=== PATIENT | female | born 1985 | race Caucasian/White ===

== ENCOUNTER → 2020-01-23 10:47 | Outpatient (CLI) | payer BC, SELFPAY ==
[2014-11-08 08:10] VITALS: BMI 20.9
[2020-01-23 11:27] LABS: Absolute Lymphocyte Count 2.07 X10^3/uL (0.83-4.51); Absolute Neutrophil Count 3.5 X10^3/uL (2.0-7.7); Basophil# 0.02 X10^3/uL; Basophil% 0.3 % (0-1); Eosinophil# 0.17 X10^3/uL; Eosinophils% 2.7 % (0-5); Hematocrit 39.8 % (37-47); Hemoglobin 12.8 g/dL (12.0-15.0); Lymphocyte # 2.07 X10^3/ul (4.0); Lymphocyte % 33.4 % (19-41); Mean Corp Hgb Conc 32.2 g/dL (32-36); Mean Corpuscular Hgb 30.3 pg (27.0-32.0); Mean Corpuscular Volume 94.1 fL (81-99); Mean Platelet Vol. 12.5 fl (6.2-12.0); Monocyte# 0.46 X10^3/uL; Monocyte% 7.4 % (0-10); NRBC Flagged by Analyzer 0 % (0-5); Neutrophil # 3.45 X10^3/uL (2.7-7.7); Neutrophil % 55.9 % (47-70); Platelet Count 194 K/mm3 (150-450); RBC Distribution Width CV 11.7 % (11.6-14.6); RBC Distribution Width SD 39.6 fl (35.1-43.9); Red Blood Count 4.23 M/mm3 (4.2-5.4); White Blood Count 6.2 K/mm3 (4.4-11.0)
[2020-01-23 11:58] LABS: Anion Gap 4 (5-15); BUN 8 mg/dL (7-18); BUN/Creat Ratio 11.1 RATIO (10-20); Calcium,Total 9.1 mg/dL (8.5-10.1); Chloride 110 mmol/L (98-107); Cholesterol 132 mg/dL (200); Creatinine, Serum 0.72 mg/dL (0.55-1.02); EST Glomerular Filtration Rate 100 mL/min (>60); Est Glom Filt Rate - Afr Amer 120 mL/min (>60); Ferritin 66 ng/mL (8-252); Glucose 92 mg/dL (74-106); High Density Lipoprotein 37 mg/dL; Iron 78 ug/dL (50-170); Iron Binding Capacity,Total 325 ug/dL (250-450); Potassium 3.9 mmol/L (3.5-5.1); Sodium Level 141 mmol/L (136-145); Thyroid Stim Hormone (TSH) 1.29 uIU/mL (0.358-3.74); Triglycerides 119 mg/dL; Very Low Density Lipoprotein 24 mg/dL (5-40)
[2020-01-25 09:48] LABS: Vitamin D,25 Hydroxy 34.1 ng/mL
[2020-01-25 09:57] LABS: Vitamin B12 > 2000 pg/mL (211-911)
[2020-01-26 07:45] LABS: SARS-COV-2 TOTAL ABS Nonreactive (Nonreactive)
== END ==
PROVIDERS: PCP Pediatrics; Referring Provider Pediatrics; Visit Provider Pediatrics
DX: Z00.00 Encounter for general adult medical examination without abnormal findings (principal); B34.9 Viral infection, unspecified; E55.9 Vitamin D deficiency, unspecified; J45.909 Unspecified asthma, uncomplicated; E53.8 Deficiency of other specified B group vitamins; R79.9 Abnormal finding of blood chemistry, unspecified
CPT/HCPCS: 80048; 80061; 82306; 82607; 82728; 83540; 83550; 84443; 85025; 86769; G2023

== ENCOUNTER → 2020-12-17 09:51 | Outpatient (CLI) | payer BC, SELFPAY ==
[2020-12-17 10:29] LABS: Absolute Neutrophil Count 2.8 X10^3/uL (2.0-7.7); Basophil# 0.06 X10^3/uL; Eosinophil# 0.15 X10^3/uL; Eosinophils% 2.4 % (0-5); Hemoglobin 12.4 g/dL (12.0-15.0); Lymphocyte % 43.7 % (19-41); Mean Corp Hgb Conc 31.8 g/dL (32-36); Mean Corpuscular Hgb 29.8 pg (27.0-32.0); Mean Corpuscular Volume 93.8 fL (81-99); Mean Platelet Vol. 12.2 fl (6.2-12.0); Monocyte# 0.47 X10^3/uL; Monocyte% 7.6 % (0-10); NRBC Flagged by Analyzer 0 % (0-5); Neutrophil # 2.79 X10^3/uL (2.7-7.7); Neutrophil % 45.1 % (47-70); Platelet Count 194 K/mm3 (150-450); RBC Distribution Width CV 11.9 % (11.6-14.6); RBC Distribution Width SD 40.9 fl (35.1-43.9); Red Blood Count 4.16 M/mm3 (4.2-5.4); White Blood Count 6.2 K/mm3 (4.4-11.0)
[2020-12-17 12:13] LABS: Cholesterol 136 mg/dL (200); Folates, (Folic Acid) > 100.00 ng/mL (3.1-55.4); High Density Lipoprotein 55 mg/dL; Triglycerides 59 mg/dL; Very Low Density Lipoprotein 12 mg/dL (5-40)
[2020-12-22 12:12] LABS: T3 Total - Triiodothyronine 1.02 ng/mL (0.6-1.81); Vitamin B12 598 pg/mL (211-911); Vitamin D,25 Hydroxy 23.5 ng/mL
== END ==
PROVIDERS: PCP Pediatrics; Referring Provider Pediatrics; Visit Provider Pediatrics
DX: E55.9 Vitamin D deficiency, unspecified (principal); R79.9 Abnormal finding of blood chemistry, unspecified; E53.8 Deficiency of other specified B group vitamins; R00.2 Palpitations
CPT/HCPCS: 36415; 80061; 82306; 82607; 82746; 84439; 84443; 84480; 85025

== ENCOUNTER → 2021-02-17 09:33 | Outpatient (CLI) | payer BC, SELFPAY ==
[2014-11-08 08:10] VITALS: BMI 20.9
[2021-02-17 11:49] LABS: Anion Gap 6 (5-15); BUN 8 mg/dL (7-18); BUN/Creat Ratio 9.3 RATIO (10-20); Calcium,Total 9.5 mg/dL (8.5-10.1); Chloride 105 mmol/L (98-107); Creatinine, Serum 0.86 mg/dL (0.55-1.02); EST Glomerular Filtration Rate 81 mL/min (>60); Est Glom Filt Rate - Afr Amer 97 mL/min (>60); Glucose 71 mg/dL (74-106); Potassium 3.6 mmol/L (3.5-5.1); Sodium Level 140 mmol/L (136-145)
[2021-02-17 14:12] LABS: Vitamin D,25 Hydroxy 38.5 ng/mL
== END ==
PROVIDERS: PCP Pediatrics; Visit Provider Pediatrics
DX: E55.9 Vitamin D deficiency, unspecified (principal)
CPT/HCPCS: 36415; 80048; 82306

== ENCOUNTER → 2021-03-03 09:54 | Outpatient (CLI) | payer BC, SELFPAY ==
[2014-11-08 08:10] VITALS: BMI 20.9
[2021-03-06 05:06] LABS: Chlamydia By Nucleic Acid AMP Negative (Negative)
[2021-03-06 07:36] LABS: Gonococcus By Nucleic Acid AMP Negative (Negative)
== END ==
PROVIDERS: PCP Pediatrics; Visit Provider Obstetrics & Gynecology
DX: Z11.3 Encounter for screening for infections with a predominantly sexual mode of transmission (principal)
CPT/HCPCS: 87491; 87591

== ENCOUNTER → 2022-02-24 | Outpatient (CLI) | payer OTHER, SELFPAY ==
[2022-02-24 10:22] LABS: Absolute Lymphocyte Count 2.52 X10^3/uL (0.83-4.51); Absolute Neutrophil Count 3.1 X10^3/uL (2.0-7.7); Basophil# 0.05 X10^3/uL; Basophil% 0.8 % (0-1); Eosinophil# 0.15 X10^3/uL; Eosinophils% 2.4 % (0-5); Hematocrit 39.4 % (37-47); Hemoglobin 12.8 g/dL (12.0-15.0); Lymphocyte # 2.52 X10^3/ul (0.83-4.51); Lymphocyte % 39.7 % (19-41); Mean Corp Hgb Conc 32.5 g/dL (32-36); Mean Corpuscular Hgb 30.7 pg (27.0-32.0); Mean Corpuscular Volume 94.5 fL (81-99); Mean Platelet Vol. 12.6 fl (6.2-12.0); Monocyte# 0.48 X10^3/uL; Monocyte% 7.6 % (0-10); NRBC Flagged by Analyzer 0 % (0-5); Neutrophil # 3.13 X10^3/uL (2.7-7.7); Neutrophil % 49.2 % (47-70); Platelet Count 205 K/mm3 (150-450); RBC Distribution Width CV 11.7 % (11.6-14.6); RBC Distribution Width SD 40.4 fl (35.1-43.9); Red Blood Count 4.17 M/mm3 (4.2-5.4); White Blood Count 6.4 K/mm3 (4.4-11.0)
[2022-02-24 11:31] LABS: Anion Gap 3 (5-15); BUN 8 mg/dL (7-18); BUN/Creat Ratio 8.8 RATIO (10-20); Calcium,Total 9.1 mg/dL (8.5-10.1); Chloride 111 mmol/L (98-107); Cholesterol 120 mg/dL (200); Creatinine, Serum 0.91 mg/dL (0.55-1.02); EST Glomerular Filtration Rate 75 mL/min (>60); Est Glom Filt Rate - Afr Amer 91 mL/min (>60); Folates, (Folic Acid) > 100.00 ng/mL (3.1-55.4); Glucose 91 mg/dL (74-106); High Density Lipoprotein 49 mg/dL; Potassium 3.6 mmol/L (3.5-5.1); Sodium Level 143 mmol/L (136-145); T4 Free Direct 0.87 ng/dL (0.76-1.46); Thyroid Stim Hormone (TSH) 0.97 uIU/mL (0.358-3.74); Triglycerides 57 mg/dL; Very Low Density Lipoprotein 11 mg/dL (5-40)
[2022-02-26 08:49] LABS: T3 Total - Triiodothyronine 0.98 ng/mL (0.6-1.81); Vitamin D,25 Hydroxy 45.6 ng/mL
== END | disposition home or self-care (01) ==
LOC: LAB 09:30
PROVIDERS: PCP Pediatrics; Visit Provider Pediatrics
DX: Z00.00 Encounter for general adult medical examination without abnormal findings (principal); E55.9 Vitamin D deficiency, unspecified; R79.9 Abnormal finding of blood chemistry, unspecified; E53.8 Deficiency of other specified B group vitamins; R53.82 Chronic fatigue, unspecified
CPT/HCPCS: 36415; 80048; 80061; 82306; 82746; 84439; 84443; 84480; 85025

== ENCOUNTER → 2022-09-01 | Outpatient (CLI) | payer OTHER, SELFPAY ==
[2022-09-01 10:58] LABS: Absolute Lymphocyte Count 2.95 X10^3/uL (0.83-4.51); Absolute Neutrophil Count 3.8 X10^3/uL (2.0-7.7); Basophil# 0.06 X10^3/uL; Basophil% 0.8 % (0-1); Eosinophil# 0.15 X10^3/uL; Hematocrit 41.1 % (37-47); Hemoglobin 13.4 g/dL (12.0-15.0); Lymphocyte # 2.95 X10^3/ul (0.83-4.51); Lymphocyte % 39.1 % (19-41); Mean Corp Hgb Conc 32.6 g/dL (32-36); Mean Corpuscular Hgb 30.9 pg (27.0-32.0); Mean Corpuscular Volume 94.9 fL (81-99); Mean Platelet Vol. 12.4 fl (6.2-12.0); Monocyte# 0.58 X10^3/uL; Monocyte% 7.7 % (0-10); NRBC Flagged by Analyzer 0 % (0-5); Neutrophil # 3.79 X10^3/uL (2.7-7.7); Neutrophil % 50.3 % (47-70); Platelet Count 220 K/mm3 (150-450); RBC Distribution Width CV 11.5 % (11.6-14.6); RBC Distribution Width SD 39.6 fl (35.1-43.9); Red Blood Count 4.33 M/mm3 (4.2-5.4); White Blood Count 7.5 K/mm3 (4.4-11.0)
[2022-09-01 12:02] LABS: ALB/GLOB Ratio 1.1 RATIO (0.9-2.4); AST(SGOT) 12 U/L (15-37); Alanine Aminotransfer ALT/SGPT 20 U/L (13-56); Albumin, Serum 3.9 g/dL (3.2-5.0); Alkaline Phosphatase 52 U/L (45-117); Anion Gap 8 (5-15); BUN 9 mg/dL (7-18); BUN/Creat Ratio 10.8 RATIO (10-20); Calcium,Total 8.9 mg/dL (8.5-10.1); Chloride 109 mmol/L (98-107); Cholesterol 130 mg/dL (200); Creatinine, Serum 0.84 mg/dL (0.55-1.02); EST Glomerular Filtration Rate 83 mL/min (>60); Est Glom Filt Rate - Afr Amer 100 mL/min (>60); Ferritin 62 ng/mL (8-252); Globulin 3.4 g/dL (2.2-4.2); Glucose 89 mg/dL (74-106); High Density Lipoprotein 49 mg/dL; Iron 106 ug/dL (50-170); Iron Binding Capacity,Total 366 ug/dL (250-450); Potassium 3.6 mmol/L (3.5-5.1); Protein, Total 7.3 g/dL (6.4-8.2); Sodium Level 144 mmol/L (136-145); T4 Free Direct 1.06 ng/dL (0.76-1.46); Thyroid Stim Hormone (TSH) 1.16 uIU/mL (0.358-3.74); Triglycerides 98 mg/dL; Very Low Density Lipoprotein 20 mg/dL (5-40)
[2022-09-03 08:42] LABS: T3 Total - Triiodothyronine 0.82 ng/mL (0.6-1.81); Vitamin B12 815 pg/mL (211-911); Vitamin D,25 Hydroxy 25.9 ng/mL
== END | disposition home or self-care (01) ==
LOC: LAB 10:27
PROVIDERS: PCP Pediatrics; Referring Provider Pediatrics; Visit Provider Pediatrics
DX: E55.9 Vitamin D deficiency, unspecified (principal); R79.9 Abnormal finding of blood chemistry, unspecified; E53.8 Deficiency of other specified B group vitamins; R00.2 Palpitations; R53.82 Chronic fatigue, unspecified; G90.A Postural orthostatic tachycardia syndrome [POTS]
CPT/HCPCS: 36415; 80053; 80061; 82306; 82607; 82728; 82746; 83540; 83550; 84439; 84443; 84480; 85025

== ENCOUNTER → 2022-12-12 | Outpatient (CLI) | payer OTHER, SELFPAY ==
[2022-12-12 11:23] LABS: Absolute Lymphocyte Count 2.73 X10^3/uL (0.83-4.51); Basophil# 0.06 X10^3/uL; Basophil% 0.8 % (0-1); Eosinophil# 0.17 X10^3/uL; Eosinophils% 2.3 % (0-5); Hematocrit 43.2 % (37-47); Hemoglobin 13.8 g/dL (12.0-15.0); Lymphocyte # 2.73 X10^3/ul (0.83-4.51); Lymphocyte % 36.4 % (19-41); Mean Corp Hgb Conc 31.9 g/dL (32-36); Mean Corpuscular Hgb 30.6 pg (27.0-32.0); Mean Corpuscular Volume 95.8 fL (81-99); Mean Platelet Vol. 12.3 fl (6.2-12.0); Monocyte# 0.55 X10^3/uL; Monocyte% 7.3 % (0-10); NRBC Flagged by Analyzer 0 % (0-5); Neutrophil # 3.97 X10^3/uL (2.7-7.7); Neutrophil % 52.9 % (47-70); Platelet Count 231 K/mm3 (150-450); RBC Distribution Width CV 11.8 % (11.6-14.6); Red Blood Count 4.51 M/mm3 (4.2-5.4); White Blood Count 7.5 K/mm3 (4.4-11.0)
[2022-12-12 11:59] LABS: Vitamin B12 489 pg/mL (211-911); Vitamin D,25 Hydroxy 33.1 ng/mL
[2022-12-12 14:31] LABS: ALB/GLOB Ratio 1.1 RATIO (0.9-2.4); AST(SGOT) 19 U/L (15-37); Alanine Aminotransfer ALT/SGPT 25 U/L (13-56); Albumin, Serum 4.1 g/dL (3.2-5.0); Alkaline Phosphatase 70 U/L (45-117); Anion Gap 5 (5-15); BUN 8 mg/dL (7-18); BUN/Creat Ratio 10.2 RATIO (10-20); Calcium,Total 9.6 mg/dL (8.5-10.1); Chloride 108 mmol/L (98-107); Creatinine, Serum 0.78 mg/dL (0.55-1.02); EST Glomerular Filtration Rate 89 mL/min (>60); Est Glom Filt Rate - Afr Amer 107 mL/min (>60); Ferritin 63 ng/mL (8-252); Folates, (Folic Acid) > 100.00 ng/mL (3.1-55.4); Free T3 1.9 pg/mL (2.18-3.98); Globulin 3.8 g/dL (2.2-4.2); Glucose 94 mg/dL (74-106); Iron 90 ug/dL (50-170); Iron Binding Capacity,Total 386 ug/dL (250-450); PERCENT IRON SATURATION 23.3 % (15.0-55.0); Potassium 4.1 mmol/L (3.5-5.1); Protein, Total 7.9 g/dL (6.4-8.2); Sodium Level 138 mmol/L (136-145); T4 Free Direct 0.87 ng/dL (0.76-1.46)
== END | disposition home or self-care (01) ==
PROVIDERS: PCP Pediatrics; Referring Provider Pediatrics; Visit Provider Pediatrics
DX: N64.3 Galactorrhea not associated with childbirth (principal); R53.83 Other fatigue; E53.8 Deficiency of other specified B group vitamins
CPT/HCPCS: 36415; 80053; 82306; 82607; 82728; 82746; 83540; 83550; 84146; 84439; 84443; 84481; 85025

== ENCOUNTER 2023-03-19 17:20 | Emergency (ER) | payer OTHER, SELFPAY ==
[2023-03-19 17:22] VITALS: BP 119/83; PULSE 77; RESP 14; TEMP 36.7; O2SAT 100; BMI 25.8
--- NOTE | 2023-03-19 17:35 | NURSING ---
NO OLD EKGS
--- NOTE | 2023-03-19 17:44 | ED.VIS.CHEST ---
HPI History of Present Illness Chief Complaint: Chest Pain Narrative Narrative: Patient presents with 2-day history of constant sharp stabbing nonpleuritic chest pain. She has had this in the past and attributed to POTS but she called her PCP who told her to go to the ED. she has no dyspnea. No back pain or tearing sensation. She has no lower extreme edema or calf pain. [facility] Medical History (Updated 03/19/23 @ 19:[address] Cirilo Salazar MD) Acute sinusitis, unspecified Contact with and (suspected) exposure to other viral communicable diseases Home Medications albuterol sulfate 90 mcg/actuation aerosol inhaler (Ventolin HFA) 2 puff inhalation Q4H PRN PRN Sob &/Or Wheezing 11/08/14 [History Last Taken Unknown] cyanocobalamin (vitamin B-12) 1,000 mcg/mL injection solution 100 mcg subcut Q14D 11/08/14 [History Last Taken Unknown] levomefolate calcium 15 mg tablet (L-Methylfolate) 15 mg PO DAILY 11/08/14 [History Last Taken Unknown] multivitamin with folic acid 400 mcg tablet (Thera) 1 tab PO DAILY 11/08/14 [History Last Taken Unknown] quetiapine 100 mg tablet 100 mg PO DAILY 11/08/14 [History Last Taken Unknown] amoxicillin 875 mg-potassium clavulanate 125 mg tablet 1 tab PO BID #28 tabs 12/13/21 [Rx Last Taken Unknown] Allergy/AdvReac Type Severity Reaction Status Date / Time Sulfa (Sulfonamide AdvReac Other Verified 03/19/23 17:21 Antibiotics) Social History Smoking Status: Never smoker ROS ROS ED ROS Narrative Past medical history: Reviewed Medications: Reviewed Social history: Noncontributory Review of systems: All systems negative except as indicated General: No fever Eyes: No visual changes ENT: No upper airway congestion, normal voice Neck: No neck pain Cardiovascular: Chest pain as in HPI Respiratory: No shortness of breath or cough Gastrointestinal: No abdominal pain, nausea vomiting or diarrhea Genitourinary: No dysuria Musculoskeletal: Denies myalgias no difficulty with ambulation Skin: No rash Neurological: No memory loss, confusion or any focal weakness EXAM Physical Exam Narrative Exam Narrative: Physical exam General: Well nourished, Well developed, No Acute Distress Head: Normocephalic, Atraumatic Eyes: Conjunctiva not pale ENT: Moist mucous membranes Neck: Supple, Nontender, No lymphadenopathy Cardiovascular: Regular rate, Regular rhythm Respiratory: No distress, CTA bilaterally Abdomen: Soft, Nontender, Nondistended Back: Nontender, Normal Inspection. Negative for: CVA tenderness Extremities: Nontender, No edema Skin: Normal color, No rash Neurological: Alert, Normal Strength, Normal Sensation Psychological: Normal affect Const Vital Signs: 03/19/23 17:22 03/19/23 17:27 03/19/23 18:30 Temperature 98.1 F Temperature Source Temporal Pulse Rate 77 61 Respiratory Rate 14 14 Respiratory Effort Normal Non-Labored Blood Pressure 119/83 H 111/84 H Blood Pressure Mean 95 93 Pulse Ox 100 100 Oxygen Delivery Method Room Air Room Air MDM MDM MDM Narrative Medical decision making narrative: EKG: Sinus rhythm with a rate of 69. Normal ME and QTc intervals. No ischemic changes. Interpreted by emergency doctor. Independent interpretation of test. Telemetry: Sinus rhythm with a rate in the 60s and 70s without ectopy Chest x-ray interpreted by me as normal : Patient has an unremarkable work-up in the ED. She has chest pain that is migrating I gave her Toradol and she improved. This pain has been ongoing for quite some time she thought it may have been somewhat different today. Regardless I believe she can be safely discharged I do not not worried about a PE she does not have any risk factors. I am not worried about cardiac disease she has normal EKG and troponin. I have ruled out pneumothorax pneumonia or any other lung disease on x-ray. She does not meet criteria for admission Lab Data Labs: Laboratory Results - last 24 hr 03/19/23 17:45 WBC 8.2 RBC 4.25 Hgb 13.4 Hct 39.6 MCV 93.2 MCH 31.5 MCHC 33.8 RDW Std Deviation 39.9 RDW Coeff of Yaquelin 11.8 Plt Count 216 MPV 11.9 Immature Gran % (Auto) 0.100 Neut % (Auto) 56.7 Lymph % (Auto) 33.5 Stephens % (Auto) 7.4 Eos % (Auto) 1.8 Baso % (Auto) 0.5 Absolute Neuts (auto) 4.6 Absolute Lymphs (auto) 2.74 Nucleated RBC % 0 Sodium 140 Potassium 4.0 Chloride 108 H Carbon Dioxide 29.0 Anion Gap 3 L BUN 8 Creatinine 0.76 Estim Creat Clear Calc 96.72 Est GFR (MDRD) Af Amer 111 Est GFR (MDRD) Non-Af 91 BUN/Creatinine Ratio 10.5 Glucose 95 Calcium 9.0 Total Bilirubin 0.20 AST 17 ALT 39 Alkaline Phosphatase 73 Troponin I High Sens < 3 L Total Protein 7.3 Albumin 3.7 Globulin 3.6 Albumin/Globulin Ratio 1.0 Discharge Plan Triage Chief Complaint: Chest Pain ED Provider: Cirilo Salazar Dx/Rx/DC Orders Clinical Impression: POTS (postural orthostatic tachycardia syndrome), Chest pain Instructions: ED Chest Pain, Uncertain Cause Prescriptions: No Action amoxicillin-pot clavulanate 875-125 mg tablet 1 tab PO BID Qty: 28 0RF quetiapine 100 MG tablet 100 mg PO DAILY cyanocobalamin (vitamin B-12) 1,000 MCG/ML solution 100 mcg subcut Q14D albuterol sulfate [Ventolin HFA] 1 INHALER inhaler 2 puff inhalation Q4H PRN PRN (Reason: Sob &/Or Wheezing) levomefolate calcium [L-Methylfolate] 15 MG tablet 15 mg PO DAILY multivitamin with folic acid [Thera] 1 TABLET tablet 1 tab PO DAILY Primary Care Provider: Tamara Jalloh Referrals: Tamara Jalloh MD [Primary Care Provider] - 3-5 Days Disposition Disposition: Home, Self Care
[2023-03-19] MEDS: Ketorolac 15 MG/ML Vial IV (17:45)
[2023-03-19 17:52] LABS: Absolute Lymphocyte Count 2.74 X10^3/uL (0.83-4.51); Absolute Neutrophil Count 4.6 X10^3/uL (2.0-7.7); Basophil# 0.04 X10^3/uL; Basophil% 0.5 % (0-1); Eosinophil# 0.15 X10^3/uL; Eosinophils% 1.8 % (0-5); Hematocrit 39.6 % (37-47); Hemoglobin 13.4 g/dL (12.0-15.0); Lymphocyte # 2.74 X10^3/ul (0.83-4.51); Lymphocyte % 33.5 % (19-41); Mean Corp Hgb Conc 33.8 g/dL (32-36); Mean Corpuscular Hgb 31.5 pg (27.0-32.0); Mean Corpuscular Volume 93.2 fL (81-99); Mean Platelet Vol. 11.9 fl (6.2-12.0); Monocyte# 0.61 X10^3/uL; Monocyte% 7.4 % (0-10); NRBC Flagged by Analyzer 0 % (0-5); Neutrophil # 4.64 X10^3/uL (2.7-7.7); Neutrophil % 56.7 % (47-70); Platelet Count 216 K/mm3 (150-450); RBC Distribution Width CV 11.8 % (11.6-14.6); RBC Distribution Width SD 39.9 fl (35.1-43.9); Red Blood Count 4.25 M/mm3 (4.2-5.4); White Blood Count 8.2 K/mm3 (4.4-11.0)
--- NOTE | 2023-03-19 18:00 | RAD_ITS ---
STUDY: X-RAY CHEST REASON FOR EXAM: Female, 37 years old. Chest pain TECHNIQUE: Single AP portable view of the chest. COMPARISON: None. FINDINGS: The lungs are clear and expanded. There is no demonstrated pleural abnormality. Normal size heart. Normal mediastinum and bladimir. Normal visualized pulmonary arteries. Normal visualized aortic arch and descending thoracic aorta. Normal visualized thoracic spine. Normal visualized ribs, clavicles, and shoulders. There is no demonstrated abnormality of the visualized soft tissue structures of the upper abdomen. RAD/Chest 1 View (Portable) IMPRESSION: Normal x-ray examination of the chest. Electronically Signed: Wayne Judge MD at 19:59 EDT ,
[2023-03-19 18:30] VITALS: BP 111/84; PULSE 61; RESP 14; O2SAT 100
[2023-03-19 18:42] LABS: AST(SGOT) 17 U/L (15-37); Alanine Aminotransfer ALT/SGPT 39 U/L (13-56); Albumin, Serum 3.7 g/dL (3.2-5.0); Alkaline Phosphatase 73 U/L (45-117); Anion Gap 3 (5-15); BUN 8 mg/dL (7-18); BUN/Creat Ratio 10.5 RATIO (10-20); Chloride 108 mmol/L (98-107); Creatinine, Serum 0.76 mg/dL (0.55-1.02); EST Glomerular Filtration Rate 91 mL/min (>60); Est Glom Filt Rate - Afr Amer 111 mL/min (>60); Estimated Creatinine Clearance 96.72 ml/min; Globulin 3.6 g/dL (2.2-4.2); Glucose 95 mg/dL (74-106); Protein, Total 7.3 g/dL (6.4-8.2); Sodium Level 140 mmol/L (136-145); Troponin-I HS < 3 pg/mL (3.0-54.0)
== END 2023-03-19 19:38 | disposition home or self-care (01) ==
PROVIDERS: Emergency Provider Emergency Medicine; PCP Pediatrics; Visit Provider Emergency Medicine
DX: I49.8 Other specified cardiac arrhythmias (principal); R07.9 Chest pain, unspecified
CPT/HCPCS: 71045; 80053; 84484; 85025; 93005; 96374; 99283; J7030; A4216

== ENCOUNTER 2023-06-17 08:00 | Outpatient (RCR) | payer OTHER, SELFPAY ==
--- NOTE | 2023-06-17 09:00 | BH.COMM ---
Communication Note Communication with Client Communication Note: Completed initial paperwork and suicide screening. Low risk. Reviewed pre-admission screening with no significant changes in symptoms. Consulted with Dr. Khan and verbal order to admit to IOP level of care with dx of F33.2
--- NOTE | 2023-06-17 09:00 | BH.SGPN.GN ---
Behaviors/Verbalizations/Mental Status: [Patient was alert and oriented, appropriately dressed and groomed. Eye contact was good, motor activity normal, speech within normal limits. Affect congruent, mood content. Thoughts linear, logical, no signs of hallucinations or delusions. Reviewed Patients symptom tracker and the patient reports depressed mood, anxiety/panic attacks, aggravation/irritation/anger, self-harm urges, and risk/thoughts of suicide within patients normal base level.] Client Response/Progress/Benefit: [Patient was engaged and open to the discussion. Patient reported her mood to be ?nervous and cautiously optimistic?. This is patients first day in group. Patients first win was that she has finally connected with a doctor that she will see next week. The second win is that she is in group today. The patient?s stressor is that she is in a lot of pain. She shared that her physical health is really bad, and it seems to only get worse as time goes on. This makes her emotional and the group was supportive and validating. Patient was interactive and respectful with other group members about their mental wins and stressors. Patient benefited from the discussion by listening to feedback and giving input on her peer?s stressors and mental health wins. Patient will continue with IOP treatment to help develop healthy skills, promote mood stability, and improve distress tolerance. ] Narrative Note: []
--- NOTE | 2023-06-17 10:00 | BH.MTP ---
Master Treatment Plan Patient Information Program Physician:: Dr. Rita Amaya Primary Therapist:: Dia BRADFORD Psychiatric Diagnoses Psychiatric Diagnoses:: Major depressive disorder, recurrent, severe without psychosis F 33.2; Generalized anxiety disorder; PTSD; History of anorexia nervosa Diagnosis Code(s):: F 33.2 Estimated LOS Estimated LOS (in weeks):: 6 Problem/Goal #1 Problem/Goal #1 Stated Goal:: Pt will increase mood stability by reducing hopelessness, worthlessness, and negative thinking patterns caused by MDD. Description of Barriers: Pt has a lot of medical issues that reinforce negative thinking patterns and impact her daily functioning. Pt reports negative self-talk and all or nothing expectations of herself since childhood. History of eating disorder and PTSD. Pt also reports being at a very high stressful job but pt feels guilty about leaving it. Functional Impact: Pt is a 37-year-old female with a history of MDD, LAUREN, and PTSD. Pt was referred to [facility] tx by her outpatient therapist due limited benefit from traditional counseling alone. Pt reports significant decompensation since 05/07/23 and her mental health has been impacting all areas of functioning. Triggering event was being off Seroquel for 4 days and pt feels that she has not bounced back. Pt endorses a depressed mood, numbness, poor sleep, memory issues, lack of energy, ruminations, crying spells, and poor appetite. Pt also endorses low motivation, anhedonia, negative thinking patterns, excessive guilt, and avoidance. Pt is on FMLA from work and pt feels unable to function at home. Goal Relevant Strengths/Supports: Pt has a supportive partner and outpatient treatment tx. Pt also has a lot of internal coping skills and has been through eating disorder tx and recovery. Objectives Objective #1: Stated Objective: Pt will learn and utilize 2-3 healthy coping strategies to better manage depressive symptoms and reduce suicidal ideations as shown by a decrease of DMS-5 symptoms for depression. Interventions: Through group and individual sessions, therapist will help pt identify triggers and warning signs of depression including emotional, physical, and behavioral changes. Therapist will teach pt various coping skills to manage symptoms and give pt tangible resources to use to regulate emotions. Therapist will use cognitive restructuring techniques and help pt gain awareness of negative thoughts that reinforce guilt and depression. Therapist will provide psychoeducation on maintenance cycles and help pt learn ways to break unhealthy maintenance cycles. Therapist will help pt incorporate behavioral activation and assist pt in setting SMART goals. Discharge Criteria: Pt will have met this goal when can report learning and using at least 2 coping skills to manage depressive symptoms and reduce isolation. Additionally, pt will have met this goal when pt's DSM-5 scores for depression decrease Target Date: 07/29/23 Review Date: 07/08/23 Status: open Objective #2: Stated Objective: Pt will identify at least 2-3 negative self-talk messages used to reinforce negative core beliefs, worthlessness, and isolation and replace thoughts with balanced, realistic messages. Interventions: Therapist will help pt identify distorted, negative beliefs about self and replace with more realistic, affirmative messages. Therapist will use CBT and DBT to help pt increase insight to the connection between thoughts, emotions, and behaviors. Therapist will encourage pt to practice thought challenging. Discharge Criteria: Pt will have achieved this goal when can verbalize at least 2 cognitive distortions and effectively replace those thoughts with affirmative messages. Target Date: 07/29/23 Review Date: 07/08/23 Status: open Problem/Goal #2 Problem/Goal #2 Stated Goal:: Will reduce intensity of anxiety and avoidance through increasing emotional regulation and distress tolerance skills Description of Barriers: Pt has a lot of medical issues that reinforce negative thinking patterns and impact her daily functioning. Pt reports negative self-talk and all or nothing expectations of herself since childhood. History of eating disorder and PTSD. Pt also reports being at a very high stressful job but pt feels guilty about leaving it. Functional Impact: Pt is a 37-year-old female with a history of MDD, LAUREN, and PTSD. Pt was referred to [facility] tx by her outpatient therapist due limited benefit from traditional counseling alone. Pt reports significant decompensation since 05/07/23 and her mental health has been impacting all areas of functioning. Triggering event was being off Seroquel for 4 days and pt feels that she has not bounced back. Pt endorses a depressed mood, numbness, poor sleep, memory issues, lack of energy, ruminations, crying spells, and poor appetite. Pt also endorses low motivation, anhedonia, negative thinking patterns, excessive guilt, and avoidance. Pt is on FMLA from work and pt feels unable to function at home. Goal Relevant Strengths/Supports: Pt has a supportive partner and outpatient treatment tx. Pt also has a lot of internal coping skills and has been through eating disorder tx and recovery. Objectives Objective #1: Stated Objective: Pt will identify 2-3 anxiety triggers and 2 coping skills to use when feeling anxious to manage anxiety as shown by reducing DSM-5 scores for anxiety Interventions: Therapist will provide education on anxiety, avoidance behaviors, and maintenance cycles. Therapist will help pt explore personal symptoms and warning signs of anxiety. Therapist will teach pt coping skills to improve emotional regulation, mindfulness, and distress tolerance to help pt cope with anxiety in the moment. Discharge Criteria: Pt will have accomplished this goal when she can identify at least 2 triggers and report using 2 coping skills to manage anxiety. Additionally, pt will have accomplished this goal AEB reduction of DSM-5 scores for anxiety. Target Date: 07/29/23 Review Date: 07/08/23 Status: open Objective #2: Stated Objective: Pt will increase ability to manage stressors and anxiety by gaining 2-3 distress tolerance skills. Interventions: Through group and individual therapy, pt will learn various coping skills to help manage stress and anxiety. Therapist will utilize DBT distress tolerance skills to increase awareness and give pt tools to more effectively manage anxiety. Therapist will provide psychoeducation on emotional regulation and help pt identify unhealthy coping skills she wants to change. Discharge Criteria: Pt will have accomplished this goal when can report improved ability to manage stressors and identify at least 2 distress tolerance skills. Target Date: 07/29/23 Review Date: 07/08/23 Status: open
--- NOTE | 2023-06-17 10:10 | BH.SGPN.GN ---
Behaviors/Verbalizations/Mental Status: []Pt alert and oriented, casually dressed and groomed. Eye contact fair. Motor activity appropriate. Speech within normal limits. Affect constricted, mood dysthymic. Thoughts linear, logical, no signs of hallucinations or delusions. Client Response/Progress/Benefit: []Pt receptive of session, actively engaged throughout AEB taking notes, providing some input, and listening to discussion. Appeared to connect with group topic of cognitive distortions and the impact of thought patterns on mental health, coping behaviors, and relationships. Pt reports utilizes distortions of catastrophizing, all or nothing thinking, and overgeneralization. Pt appeared to benefit from gaining insight on distorted thinking patterns and how this impacts overall mental health. Will continue IOP tx to increase healthy coping skills, challenge negative thoughts, and prevent decompensation.
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
--- NOTE | 2023-06-19 10:00 | BH.NA ---
Physical Data Vital Signs Pulse Rate: 66 Blood Pressure: 115/79 Height/Weight Height: 1.68 m Weight:: 70.307 kg Weight in Pounds: 155.0 lbs Current Medication Compliance Medication Compliance Do you take your medication as prescribed?: Yes Nutritional History Appetite Nutritional Instructions: Describe your appetite:: Good Additional nutritional information:: Client states she has gained about 20lbs in the last year. Client does admit she has a history of anorexia nervosa. Functional Assessment Sleep Pattern Describe any problems with sleeping: Client states her sleep varies, usually between 3-4 hours per night or up to 10 hours per night. Sensory/Communication Assess Communication Problems Do you have difficulty understanding what people are saying?: No Medical Problems/History Cardiac Conditions Cardiovascular: Other (See comments) (POTS, hypotension) Respiratory Conditions Respiratory: Asthma Neurological Conditions Neurological: Other (See comments) (migraines (client states she has a lot of food intolerances that can cause her migraines and is on preventative medication), history of seizures (none in 10 years), states she has had some syncopal episodes due to her POTS but not frequent) Hematologic Conditions Hematologic: Anemia (has B12 injections) Pain Assessment Do you have acute or chronic pain?: Yes (from back injury) Additional History Additional comments:: MTHFR mutation, long COVID (since COVID in October 2019- brain fog, fatigue, exercise intolerance) Surgical History Surgical History Have you had any surgeries? If so, list type and date:: Yes (x2 for endometriosis, wisdom teeth removal) Substance Abuse Substance Abuse Please describe substance abuse in the last 30 days:: Client denies alcohol use. Client denies tobacco or substance use. Client states when she is working, she drinks about 3-5 cups of coffee per day with caffeine. Client states if she does not work, she usually only has 1 cup of coffee per day. Mental Status Summary Mental Status Significant Findings/Observations on Appearance and Mood:: Client is alert and oriented x 4. Client is casually groomed with good hygiene. Client makes good eye contact. Client's voice has normal rate and volume. Client has appropriate affect. Client makes logical associations and has normal processing. Client denies delusions/hallucinations. Client denies SI. Suicide Assessment Suicidal Ideation Are you currently or have you been suicidal in the past?: Yes Suicidal Intentional Rating Scale (SIRS): Suicidal thoughts (past) (Denies SI at this time) Physician Notification Past Psychiatric History MH Treatment Hx Past Psychiatric Medications:: Lamictal (from [id number]), Amitriptyline (made her more suicidal) Age of first mental health symptoms: Client first started on medication for her mental health around age 20. Describe (age, circumstance, etc) any past hospitalizations: None. Current providers for mental health treatment (counselor, psychiatrist, casework specialist, etc.): Fady Quintana for counseling, Dr. Rae for psychiatry Fall Risk Assessment Age Age: Less than 60 Mental Status Mental Status: Willing & able to ask for assistance when needed Physical Status Physical Status: No problems Impairments Impairments: None Elimination Elimination: Continent AND independent Gait or Balance Gait or Balance: Walks independently Hx of Falls History of falls in the past 6 months: No known history Medications/Substances Psychotropics:: Antipsychotics Medications/substances used within the past 24 hours or ordered to administer: 1-2 of the medications/substances listed above Total Score Total Points:: 1 RN Summary of Impressions Impressions Recommendations Impressions: Psychiatric Issues: 1. Major depressive disorder, recurrent, severe without psychosis 2. Generalized anxiety disorder 3. PTSD 4. History of anorexia nervosa 5. Work, primary support issues Level of Care How do the client's current symptoms and functional deficits support need for this level of care?: Client was referred to IOP by her therapist for a decline in mental health that started in April 2023 when client missed her Seroquel dose for 4 days. Client states I was a mess then and reports crying, mood swings, decreased energy, increased headaches, erratic sleep, and some nausea/vomiting. Client states this also happened earlier in the year when she missed doses of her Seroquel. Client states she had COVID in October 2019 and has had brain fog and an impaired memory since. Client has been off work since April due to mental health and states I'm just trying to figure out where to go from here, stating that work was stressful and she is nervous about going back. Client does state work is a big part of her identity, and she feels stressed not working also. Client denies SI. IOP will promote gains and prevent further decompensation while providing social support and skills training.
--- NOTE | 2023-06-19 10:15 | BH.SGPN.GN ---
Behaviors/Verbalizations/Mental Status: [Patient was alert and oriented, casually dressed and groomed. Eye contact was good, motor activity normal, speech within normal limits. Affect congruent, mood depressed. Thoughts linear, logical, no signs of hallucinations or delusions. ] Client Response/Progress/Benefit: [Patient was open and participated in group discussions. Attentive during psychoeducation Goal Setting. Participated during the activity. Interactive group discussion on Goal Setting in which group verbalized how to create the best and most effective goal using the SMART Goal model for their lives. Patient shared that making a goal can help you feel empowered when you achieve that goal and can create a snowball effect by having energy to do more. Patient benefited from increased awareness of stages of changes and how emotions impact change. Will continue in IOP to promote gains, further combat distorted thinking, and improve daily functioning.] Narrative Note: []
[2023-06-19 11:02] VITALS: BP 115/79; PULSE 66
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
--- NOTE | 2023-06-19 11:10 | BH.SGPN.GN ---
Behaviors/Verbalizations/Mental Status: []Pt alert and oriented, casually dressed, appropriately groomed. Eye contact fair. Motor activity appropriate. Speech within normal limits, mostly quiet. Affect congruent, mood anxious. Thoughts linear, logical, no signs of hallucinations or delusions. Client Response/Progress/Benefit: [] Pt was engaged during discussion and willing to complete the worksheet challenging them to develop a personal SMART goal. Pt chose the goal of stretching for 5 minutes everyday. Pt stated daily movement will help with physical and mental health. Pt identified barriers which included fear, procrastination, and pain/low energy. Identified solutions such as reminding self of stretches, set a daily alarm, and give herself alfie to be gentle when needed. Pt receptive to identifying solutions for these barriers and willing to begin working on this goal. Benefited from this group by developing a short-term SMART goal related to mental health. Will continue IOP tx to increase healthy coping, improve positive thinking, and prevent decompensation.
--- NOTE | 2023-06-19 11:16 | BH.DR.ITP ---
Initial Treatment Plan Patient Information Visit Information: ADMISSION DATE: EXPECTED LOS: 4-6 weeks Problems/Symptoms Problem #1:: DePression Symptom:: Sadness, worthlessness, guilt, anhedonia, biological disruption of appetite and sleep, decreased concentration Problem #2:: Anxiety Symptom:: Worry, rumination, avoidance, flashbacks
--- NOTE | 2023-06-21 09:00 | BH.SGPN.GN ---
Behaviors/Verbalizations/Mental Status: [Patient was alert and oriented, appropriately dressed and groomed. Eye contact was good, motor activity normal, speech within normal limits. Affect congruent, mood content. Thoughts linear, logical, no signs of hallucinations or delusions. Reviewed Patients symptom tracker and the patient reports depressed mood, anxiety/panic attacks, aggravation/irritation/anger, self-harm urges, and risk/thoughts of suicide within patients normal base level.] Client Response/Progress/Benefit: [ Patient was engaged and open to the discussion. Patient reported her mood to be ?tired?. Patients first win is that she had a medicine change recently that seems to be working but is making her lethargic. The patients second win was that her partner made their whole thanksgiving allergy friendly, so she was able to eat everything that was made. Patient shared that part of her bad health is that she is allergic to ?almost everything?. The patients stressor is that she is still in a lot of pain physically. Patient was interactive and respectful with other group members about their mental wins and stressors. Patient benefited from the discussion by listening to feedback and giving input on his peer?s stressors and mental health wins. Patient will continue with IOP treatment to help develop healthy skills, promote mood stability, and improve distress tolerance.] Narrative Note: []
--- NOTE | 2023-06-21 10:15 | BH.SGPN.GN ---
Behaviors/Verbalizations/Mental Status: []Pt alert and oriented, casually dressed and groomed. Eye contact good. Motor activity appropriate. Speech within normal limits. Affect congruent, mood depressed. Thoughts linear, logical, no signs of hallucinations or delusions. Client Response/Progress/Benefit: []Pt was an active participant in group discussions. Attentive during psychoeducation on 4 types of conflict styles (Competing, Collaborating, Avoiding, and Accommodating). Worked with group to define conflict and identify how conflict can be beneficial. With peers, pt identified barriers to addressing or managing conflict which included: not wanting to hurt others, unmanaged emotions, assumptions, and cognitive distortions. Pt believes they most often use the accommodating type with others and the competing type with internal conflict. Pt shared she does not get her needs met with others and she beats herself up when she makes mistakes.?Benefited from group due to increase insight and awareness of benefits to conflict, conflict styles, and obstacles to managing conflict. Will continue in IOP to prevent decompensation, improve daily functioning, and increase self-compassion.? Narrative Note: []
--- NOTE | 2023-06-21 11:10 | BH.SGPN.GN ---
Behaviors/Verbalizations/Mental Status: []Pt alert and oriented, casually dressed and groomed. Eye contact good. Motor activity appropriate. Speech within normal limits. Affect congruent, mood dysthymic. Thoughts linear, logical, no signs of hallucinations or delusions. Client Response/Progress/Benefit: [] Pt was an active participant in group discussions and activity. Attentive during psychoeducation. Along with peers was able to reflect on what conflict resolution skills can be useful outside of IOP. Pt chose to continue to work on the conflict resolution skills of not using degrading language when pt is involved in a conflict or addressing a difficult subject. Benefited from practicing and learning conflict resolution skills. Will continue in IOP to prevent decompensation, improve daily functioning, and increase self-compassion. Narrative Note: []
--- NOTE | 2023-06-24 09:00 | BH.SGPN.GN ---
Behaviors/Verbalizations/Mental Status: [Patient was alert and oriented, appropriately dressed and groomed. Eye contact was good, motor activity normal, speech within normal limits. Affect congruent, mood content. Thoughts linear, logical, no signs of hallucinations or delusions. Reviewed Patients symptom tracker and the patient reports depressed mood, anxiety/panic attacks, aggravation/irritation/anger, self-harm urges, and risk/thoughts of suicide within patients normal base level.] Client Response/Progress/Benefit: [ Patient was engaged and open to the discussion. Patient reported her mood to be ?tired and numb?. Patients first win was that she saw some of her friends yesterday and they played dungeons and dragons. Her second win was that she was able to get some cleaning done in her house although she has been experiencing physical pain still. Her stressor is that this physical pain has yet to go away. Patient was interactive and respectful with other group members about their mental wins and stressors. Patient benefited from the discussion by listening to feedback and giving input on her peer?s stressors and mental health wins. Patient will continue with IOP treatment to help develop healthy skills, promote mood stability, and improve distress tolerance.] Narrative Note: []
--- NOTE | 2023-06-24 10:15 | BH.SGPN.GN ---
Behaviors/Verbalizations/Mental Status: [] Eye contact is good. Motor activity is appropriate. Appearance is casual. Speech is Appropriate. Mood is dysthymic. Affect is constricted. Thoughts are linear and logical. No evidence of psychosis. Client Response/Progress/Benefit: []Pt engaged participant AEB listening to others, engaging in activity, and providing feedback at times. Attentive during psychoeducation and provided insight into obstacles in the way of mental wellness. Pt shared with group current mental health reality and desired mental health reality. Stated taking medications as one step she is currently making to get closer to desired reality. Identified barriers to desired reality include: physical health, anxiety/guilt, lack of motivation, financial stress, and avoidance/numbing. Benefited from taking look at current mental health state and obstacles for progress. Pt to continue IOP to increase healthy coping skills, challenge distorted thoughts, and prevent decompensation.
--- NOTE | 2023-06-24 11:20 | BH.SGPN.GN ---
Behaviors/Verbalizations/Mental Status: []Eye contact is fair. Motor activity is appropriate. Appearance is casual. Speech is Appropriate. Mood is dysthymic. Affect is constricted. Thoughts are linear and logical. No evidence of psychosis. Client Response/Progress/Benefit: [] Pt responded well to session, engaged throughout and providing lots of ideas for coping skills. Provided input when prompted during discussion on what potential internal barriers may be keeping them from reaching their desired reality. Pt identified wanting to work on personal barrier of physical health issues by working on increasing self-care practices. Pt wants to improve on drinking more water and stretching more often. Pt appeared to benefit from brainstorming skills to overcome internal barriers, as well as support of the group. Will continue in IOP tx to prevent decompensation, promote skill application, and reduce negative thinking patterns. ? Narrative Note: []
--- NOTE | 2023-06-25 09:35 | BH.MDN ---
Multi-Disciplinary Note Note 45-min Individual: Time Started:: 12:10 Date: 06/24/23 Purpose of session/treatment goals addressed:: To gather information on pt's current stressors, symptoms, triggers, and tx goals. Another goal was to build rapport and provide emotional support. Eye Contact:: Good Motor Activity:: Appropriate Appearance:: Casual Speech:: Soft Mood:: Depressed Affect:: Congruent (tearful throughout session) Thoughts:: Circular and No evidence of hallucinations/delusions noted Staff Interventions:: thought challenging, motivational interviewing, CBT techniques, rapport building, strengths perspective and taught coping skills (dialectical thinking) Client Response:: Pt responded well to session, open to meeting with therapist. Pt reports feeling tired today and shared that everything requires so much energy that pt does not have. Pt receptive to the spoon metaphor and using it as a tool to practice self-compassion and realistic goal setting. Pt stated she has been stretching each day which was her goal last week. Pt mentioned in group today that she struggles a lot of with guilt, negative thinking patterns, and not believing that things can get better for her. Pt stated the guilt is work-related, mostly, but pt also has guilt about not doing more around the house while she is off work and for relying on her partner. Pt reported she feels bad for leaving her co-workers when they are already drowning. Pt talked about her work culture and how her everyone is overwhelmed currently. Pt gained insight that if her work is unable to function without one person, it is a broken system, not one person's fault. Pt responded well to thought challenging as well as dialectical thinking to help pt see different perspectives. Pt noted that she has been rigid with herself since childhood and so being kind to herself, setting boundaries, and prioritizing her wellbeing seems out of reach. Pt receptive to thinking about starting an accomplishment journal as pt does not give herself any credit which further reinforces inappropriate guilt. Risks/Concerns:: Pt denies any SI, plan, or intent. Progress Toward Goals/Plan:: Limited as it is pt's second week of IOP tx. Pt reports benefitting from group setting and the ideas of others. Pt's work and physical health issues are two of pt's biggest stressors. Pt is receptive to feedback and willing to work on goals outside of IOP tx. Pt's symptoms continue to impact her daily functioning. Pt endorses a depressed mood, crying spells, ruminations, negative thoughts of self, avoidance, isolation, and lack of energy. Pt will continue IOP tx to prevent further decompensation, improve daily functioning, and gain healthy coping skills. Time Stopped:: 12:58
--- NOTE | 2023-06-26 09:05 | BH.SGPN.GN ---
Behaviors/Verbalizations/Mental Status: [] Eye contact is good. Motor activity is appropriate. Appearance is casual. Speech is Appropriate. Mood is depressed/irritable. Affect is congruent. Thoughts are linear and logical. No evidence of psychosis. Reviewed daily check in sheet and no reports of suicidal ideations or intent. Client Response/Progress/Benefit: [] Pt participated at times during the group discussion. Attentive. Daily symptom tracker notes 09/30 for depression and irritability. Noted increased pain this AM which is impacting her mental health. Emotion for today is ornary. Reports her mental health and physical struggles are not going away. She shared with the group several stressors and struggles with her pain which leads to feeling overwhelmed, hopeless, and depressed. Unable to identify any mental health wins aside from I'm here today. Group was supportive and provided encouragement which was beneficial. Will continue in IOP to prevent decompensation, increase healthy coping, and improve functioning to return to work. Narrative Note: []
--- NOTE | 2023-06-26 10:10 | BH.SGPN.GN ---
Behaviors/Verbalizations/Mental Status: []Eye contact is fair. Motor activity is appropriate. Appearance is casual. Speech is Appropriate. Mood is depressed and agitated. Affect is congruent. Thoughts are linear and logical. No evidence of psychosis. Client Response/Progress/Benefit: []Pt was an active participant in group discussions AEB listening attentively to others and providing feedback at times. Participated in and was engaged during experiential activity. Able to relate activity to group topic of FOF. Engaged during interactive discussion on what failure means to the group in which peers identified and defined failure. Group was able to identify impact of fear of failure on mental health. Attentive during interactive discussion on the role that FOF plays in mental wellness, depression, anxiety, and growth. Pt reported fear of failure has kept pt from searching for jobs. Benefited from increased awareness of how the role that FOF plays in mental health and decision-making. Will continue in IOP to prevent decompensation, and increase self-compassion, and reduce avoidance.? Narrative Note: []
--- NOTE | 2023-06-26 11:10 | BH.SGPN.GN ---
Behaviors/Verbalizations/Mental Status: []Pt alert and oriented, casually dressed and groomed. Eye contact good. Motor activity appropriate. Speech within normal limits. Affect constricted, mood agitated. Thoughts linear, logical, no signs of hallucinations or delusions. Client Response/Progress/Benefit: []Pt responded well to session, engaged in the experiential activity and attentive throughout group processing. Pt completed fear of failure worksheet and was able to identify thoughts and behaviors that reinforce personal fear of failure including: impostor syndrome, avoidance, not setting boundaries, and belief that worth is tied to productivity.?Pt participated in group discussion regarding strategies to overcome fear of failure. Identified wanting to work on?keeping track of her wins and practicing more self-compassion. Appeared to benefit from increased knowledge of strategies to combat fear of failure and gaining self-awareness. Pt will continue IOP tx to prevent decompensation, improve daily functioning, and combat distortions.? Narrative Note: []
== END 2023-06-27 23:59 ==
LOC: BHIOP 08:00
PROVIDERS: PCP Pediatrics; Referring Provider Psychiatry & Neurology Psychiatry; Visit Provider Psychiatry & Neurology Psychiatry
DX: F33.2 Major depressive disorder, recurrent severe without psychotic features (principal); F41.1 Generalized anxiety disorder; F43.10 Post-traumatic stress disorder, unspecified; F50.00 Anorexia nervosa, unspecified
CPT/HCPCS: S9480; 90834; 90837; 90853

== ENCOUNTER 2023-06-28 07:09 | Outpatient (RCR) | payer OTHER, SELFPAY ==
[2023-06-28 00:26] VITALS: BP 115/79; PULSE 66
--- NOTE | 2023-06-28 09:00 | BH.SGPN.GN ---
Behaviors/Verbalizations/Mental Status: [] Pt alert and oriented, neatly dressed and groomed. Eye contact good. Motor activity appropriate. Speech within normal limits. Affect congruent, mood hopeful. Thoughts linear, logical, no signs of hallucinations or delusions. Reviewed pt?s symptom tracker, no risk for suicidal ideation, plan, or intent 06/28/23 Client Response/Progress/Benefit: []Pt responded well to session, attentive and engaged. Pt reports feeling less irritable and depressed on her daily symptom tracker than she did earlier this week. Pt reports her mood is regrouping this morning which to pt means feeling more oriented and balanced. Pt shared her pain levels are decreased today and pt is feeling more optimistic. Pt bought a journal after group on Saturday and pt plans to use it to keep track of her wins and progress. Pt also identified being in less physical pain as a win today. Pt's stressor today is that her partner's car has finally and this means pt will be sharing transportation with her and they will have a financial stressor. Pt appeared to respond well to group support and encouragement. Pt will continue IOP tx to prevent decompensation, increase self-compassion, and improve daily functioning. Narrative Note: []
--- NOTE | 2023-06-28 10:10 | BH.SGPN.GN ---
Behaviors/Verbalizations/Mental Status: [] Eye contact is fair. Motor activity is appropriate. Appearance is casual. Speech is Appropriate. Mood is dysthymic. Affect is constricted. Thoughts are linear and logical. No evidence of psychosis. Client Response/Progress/Benefit: [] Client connected with topic of Anxiety and participated throughout, providing input and taking notes. Attentive during psychoeducation on different anxiety disorders and participated throughout interactive discussion defining anxiety and identifying cognitive and physiological symptoms of anxiety. Group discussed how anxiety can prevent them from trying new things. Common physical and cognitive symptoms identified by group included: ?what if thoughts?, ?fear of failure?, negative self-talk, feeling nauseous, shaky, and temperature change. Client identified overuse of media and distraction/avoidance as their safety behaviors. Benefited from increased awareness and insight on anxiety and its impact. Plan is to continue in IOP to continue use of healthy coping skills, challenge distorted/negative thinking, and prevnet decompensation.
--- NOTE | 2023-06-28 11:10 | BH.SGPN.GN ---
Behaviors/Verbalizations/Mental Status: []Client alert and oriented, casually dressed and groomed. Eye contact good. Motor activity appropriate. Speech within normal limits. Affect congruent, mood euthymic and anxious. Thoughts linear, logical, no signs of hallucinations or delusions. Client Response/Progress/Benefit: []Client was an active participant AEB pt providing input and listening attentively to peers. Attentive during psychoeducation on mindfulness coping skills and their impact on reducing anxiety and improving overall mental health wellness. Group was able to identify self-soothing and mind-based coping skills which included: 5-senses, meditation, deep breathing, journaling, and body scan. Client would like to work on calming skill of puzzles and stretching. Appeared to benefit from increasing repertoire of anxiety reduction skills. Client will continue in IOP tx to improve mood stability, further reduce distorted thinking patterns, and promote healthy skill application. Narrative Note: []
--- NOTE | 2023-07-01 09:05 | BH.SGPN.GN ---
Behaviors/Verbalizations/Mental Status: [] Pt alert and oriented, Casually dressed and groomed. Eye contact fair to good. Motor activity appropriate. Speech within normal limits. Affect congruent, mood euthymic, slight anxiety. Thoughts linear, logical, no signs of hallucinations or delusions. Reviewed pt?s symptom tracker, pt reports no suicidal ideation or intention. Client Response/Progress/Benefit: [] Client responded well to session as evidenced by listening attentively to others, providing feedback, and processing with group. Per symptom tracker client reported a 1/5, with 5 being severe, for depressed mood and a 3/5 for anxiety. Client reported mental health positive as taking time to wrap [place] presents over the weekend and indicated feeling accomplished and more prepared as a result. Client stated additional positive as looking forward to meeting her niece over the Holiday weekend. Client reported current stressor as feeling a little off and distracted this morning but is unsure as to why. Reports plans to practice some grounding and mindfulness activities over the break. Client seemed to benefit from support from others. Client to continue IOP to build coping skill repertoire, improve functioning, and prevent decompensation. Narrative Note: []
--- NOTE | 2023-07-01 10:15 | BH.SGPN.GN ---
Behaviors/Verbalizations/Mental Status: [Patient was alert and oriented, casually dressed and groomed. Eye contact was good, motor activity normal, speech within normal limits. Affect congruent, mood content. Thoughts linear, logical, no signs of hallucinations or delusions. ] Client Response/Progress/Benefit: [Patient was engaged and open to the discussion and appeared to respond well to the group. Patient used active listening and gave feedback during group discussion. Patient stated that the reason she still uses negative coping skills is because she had been taught them and she justifies it when it helps someone else like lacking boundaries. Patient appeared to benefit from increasing awareness of different perspectives and how they can affect mental health. Patient will continue IOP treatment to improve daily functioning, emotion management, and prevent decompensation.] Narrative Note: []
--- NOTE | 2023-07-01 11:05 | BH.SGPN.GN ---
Behaviors/Verbalizations/Mental Status: []Pt alert and oriented, casually dressed and groomed. Eye contact good. Motor activity appropriate. Speech within normal limits. Affect congruent, mood euthymic. Thoughts linear, logical, no signs of hallucinations or delusions Client Response/Progress/Benefit: [] Pt responded well to session, taking notes and contributing. Group discussed the different categories of coping skills which included distraction, emotional release, grounding, self-love, and thought challenging.? Pt participated in creating a coping skills ?menu? from the five categories of coping skills. Pt's coping skill menu included: engage in hobby she enjoys, breathing, eat favorite foods, talking to others, and jounral. Appeared to benefit from increasing repertoire of healthy coping skills. Will continue IOP tx to improve boundary setting, improve view of self, and prevent decompensation.
--- NOTE | 2023-07-01 13:31 | BH.MDN_ITS ---
Multi-Disciplinary Note Note 45-min Individual: Time Started:: 12:00 Date: 07/01/23 Purpose of session/treatment goals addressed:: To work on goal #1 of pt's tx plan. Another goal was to review pt's goals from last session. Eye Contact:: Good Motor Activity:: Appropriate Appearance:: Casual Speech:: Soft Mood:: Depressed Affect:: Congruent (tearful) Thoughts:: Linear, Logical and No evidence of hallucinations/delusions noted Staff Interventions:: thought challenging, CBT techniques, strengths perspective, goal setting and taught coping skills (Dorman mind and self- compassion techniques.) Client Response:: Pt responded well to session, open to meeting with therapist. Pt reports feeling okay right now which pt described as a little bit better than last week. Pt stated she is still not in physical pain which is helpful, but her mood is still depressed and anxious. Pt reported she is working on her goals of stretching and journaling and this appears to be helping. However, pt stated she still finds herself feeling a different kind of exhausted and being self-critical most of the time. Pt is receptive to working on self-compassion and dialectical thinking techniques to help pt be less harsh with herself. Pt shared she often judges herself for being back in a place where I need this level of care. Pt did well to challenge her perspective using different metaphors that connect with pt. Pt also discussed the expectations she has that reinforce depression, low motivation, and hopelessness. These included beliefs that she is responsible to lift up others, work is the most important thing, and if she can do better she should do better. Pt is working on readjusting her beliefs to less rigid ones. Pt reports her upbringing was very rigid and perfectionism was desired. Pt receptive to continuing to work on her goals from last week and to practice catching and replacing negative self-talk when pt utilizes skills I should already use. Risks/Concerns:: Pt denies any active SI, plan, or intent as of 07/01/23. Progress Toward Goals/Plan:: Pt continues to respond well to IOP AEB pt's consistent attendance and engagement during sessions. Pt reports following through with her goals of stretching and writing in her journal. Pt's symptoms are ongoing and have not resolved much since admission. However, pt reports being in less physical pain recently which is helping pt's functioning and mood. Pt does not feel able to return to work and plans to file for an extension of her FMLA. Pt will continue IOP tx as pt's depressed mood, lack of energy, lack of motivation, crying spells, guilt, and ruminations are impacting her functioning. Time Stopped:: 12:47
--- NOTE | 2023-07-03 09:02 | BH.SGPN.GN ---
Behaviors/Verbalizations/Mental Status: [] Pt alert and oriented, casually dressed and groomed. Eye contact fair. Motor activity appropriate. Speech within normal limits. Affect congruent, mood euthymic. Thoughts linear, logical, no signs of hallucinations or delusions. Reviewed pt?s symptom tracker, pt reports no suicidal ideation or intention. Client Response/Progress/Benefit: [] Client responded well to session as evidenced by listening attentively to others, providing feedback, and processing with group. Client reported mental health positive as starting to notice improvement and progress in herself since starting IOP. Client reported additional positive as almost being done with holiday present wrapping. 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 Client reported current stressor is worries about money since she has been off work. Client stated she continues to grapple with the stress of not knowing what to do about her career because going back to her job is toxic and she reported would negatively impact the progress she's made thus far. Client seemed to benefit from support from others and highlighting progress she has made. Client to continue IOP to continue use of healthy coping skills, build confidence, and prevent decompensation.
--- NOTE | 2023-07-03 10:10 | BH.SGPN.GN ---
Behaviors/Verbalizations/Mental Status: [] Eye contact is good. Motor activity is appropriate. Appearance is casual. Speech is Appropriate. Mood is anxious. Affect is congruent. Thoughts are linear and logical. No evidence of psychosis. Client Response/Progress/Benefit: [] Pt was an active participant in group discussion. Attentive. Participated during interactive discussion on what is meant by Taking Action and what is holding them back from taking action on their mental health. Participated with peers during small group discussions on the impact of negative thoughts, depression, anxiety, guilt, low self-esteem, and anger on an individual's functioning. Areas that patient wished to gain more control over include; fear of the unknown, negative thinking, and guilt . Believes that if they can gain more control over those areas of their life they will value themselves and their future more . Benefited from increased awareness of obstacles to mental wellness. Will continue in IOP to prevent decompensation, increase healthy coping, and improve functioning to return to work. Narrative Note: []
--- NOTE | 2023-07-03 11:10 | BH.SGPN.GN ---
Behaviors/Verbalizations/Mental Status: []Pt alert and oriented, casually dressed and groomed. Eye contact good. Motor activity appropriate. Speech within normal limits. Affect congruent, mood calm. Thoughts linear, logical, no signs of hallucinations or delusions. Client Response/Progress/Benefit: [] Pt responded well to session, taking notes and participating in worksheet discussion. Pt connected with the zones of action/change and that making sustainable change comes from stepping out of one?s comfort zone into the learning zone. Pt set a goal to gain control over their guilt. Pt will do this by writing down a list of things she feels guilt towards and labeling this as appropriate or inappropriate guilt. Pt identified support they might need as her therapist, honest self-reflection, and a notebook and a pen. Appeared to benefit from identifying a small goal to benefit mental health. Will continue IOP tx to prevent decompensation, improve ability to manage guilt, and reduce negative thinking patterns. Narrative Note: []
--- NOTE | 2023-07-03 12:24 | PCM.BH.PN_ITS ---
Progress Note Progress Note: History of Present Illness/Interim History: The patient is a 37-year-old single female with a history of depression, anxiety, anorexia, PTSD and chronic pain who is seen in follow-up at the [facility] behavioral health IOP. I last saw the patient 2 weeks ago and at that time no medication changes were made today as the patient has a lot of allergies and food and medication intolerances that necessitate getting medications only from certain manufacturers and her outpatient providers familiar with these. The patient has been consistent in attendance and engaged in the program according to the staff. She is making progress. The patient states that it is going well . She feels much less overwhelmed now and feels much more hopeful for the future. She states that her main mood is somewhat variable but less depressed overall. The patient states that when her pain and other physical symptoms increase her mental helps health system symptoms worsen also. She filed for an extension of being off work because she feels she is unable to go back to work at this time with the current job situation and conditions. Over her pain acted up because she had exposure to food allergens but she feels that is slowly improving now. She is doing much less crying during the day. Her sleep is less variable and she is getting about 6 to 10 hours of night now. She denies passive thoughts of , suicidal ideation, plan for suicide, self-harm thoughts, homicidal ideation, hallucinations or delusions. Current Psychiatric Medications: [] Seroquel 200 mg p.o. daily (increased 2+ weeks ago); Zoloft 40 mg of liquid Zoloft daily (increased 2+ weeks ago or changed); gabapentin 300 mg p.o. 3 times daily; topiramate 25 mg p.o. daily for headache. Mental Status Examination: [] The patient is a 37-year-old female who is casually dressed and groomed with good hygiene and appears normal for stated age with short brown hair. She is ambulatory with a normal gait and has no psychomotor agitation or retardation. She is cooperative during the interview. Eye contact is fair but she looks away and sometimes closes her eyes when talking about certain subjects. Speech is normal rate and rhythm and fluent without with no pressure. Mood is less depressed but still some sadness. Affect is mildly constricted. Thought process is goal-directed and organized. Thought content: Patient is more hopeful for the future. There is no evidence of passive thoughts of , suicidal ideation, thoughts of self-harm, homicidal ideation, plan for suicide, hallucinations or delusions. Reality testing is intact. Judgment is intact. Insight is fair and improving. Impulsivity is moderate. Diagnoses: [] 1. Major depressive disorder, recurrent, severe without psychosis 2. Generalized anxiety disorder 3. PTSD 4. History of anorexia nervosa 5. Work, primary support issues Plan: [] The patient will continue the IOP at [facility] in behavioral health as the structure, support, education and group therapy will hopefully prevent worsening of the patient's symptoms that might require hospitalization. She felt safe during the interview and if it anytime she does not feel safe she will let us know or go to the emergency room. No medication changes were made today as her outpatient psychiatrist will manage her medications as he is familiar with the patient's manufacturers that she can tolerate. She will continue to follow-up with her outpatient medical and psychiatric providers and I will see the patient in follow-up while she is in the IOP.
--- NOTE | 2023-07-05 09:00 | BH.SGPN.GN ---
Behaviors/Verbalizations/Mental Status: []Eye contact is good. Motor activity is appropriate. Appearance is casual. Speech is Appropriate. Mood is confused and optimistic. Affect is congruent. Thoughts are linear and logical. No evidence of psychosis. Reviewed daily check in sheet and no reports of suicidal ideations or intent. Client Response/Progress/Benefit: []Pt responded well to session, attentive and providing supportive statements. Pt reports feeling confused and wanting to be hopeful this morning. Pt shared this is because she was noticing progress over the past few weeks of IOP, but then yesterday pt was unable to read a novel due to difficulty concentrated and retaining information. Pt stated in the past she would have been upset and given up, but pt challenged herself to lizeth for self-care instead. Pt received encouragement from peers who reminded pt that progress is not linear and to give herself credit for the changes she is seeing. Pt's other win today was that she is working on acceptance and this has been helpful. Pt appeared to benefit from group feedback and connection. Pt will continue IOP tx to promote mood stability, increase self-compassion, and improve daily functioning. Narrative Note: []
--- NOTE | 2023-07-05 10:05 | BH.SGPN.GN ---
Behaviors/Verbalizations/Mental Status: []Eye contact is good. Motor activity is appropriate. Appearance is casual. Speech is Appropriate. Mood is dysthymic, anxious. Affect is congruent. Thoughts are linear and logical. No evidence of psychosis. Client Response/Progress/Benefit: []Pt was an active participant in group discussion. Attentive during psychoeducation on the CBT Moran (Thoughts, Behaviors, Emotions). Engaged in group discussion on how thoughts and behaviors can contribute to maintaining adverse feelings, such as depression, anxiety, and irritability. Completed worksheet in which pt identified a thought that is keeping them stuck or is in obstacle to increased mental wellness. The thoughts that pt identified were ?it's not going to work out , My body will fail me , and I've failed . Shared this maintains depression and hopelessness cycles. Pt benefited from increased awareness of the basis of CBT therapy as well as specific thoughts that are impacting pt' progress. Will continue in IOP to promote mood stability, prevent decompensation, and to increase self-compassion. Narrative Note: []
--- NOTE | 2023-07-05 11:00 | BH.SGPN.GN ---
Behaviors/Verbalizations/Mental Status: []Pt alert and oriented, casually dressed and groomed. Eye contact good. Motor activity appropriate. Speech within normal limits. Affect congruent, mood dysthymic and anxious. Thoughts linear, logical, no signs of hallucinations or delusions. Client Response/Progress/Benefit: []Pt responded well to session, contributing to discussion and attentive throughout discussion. Pt identified a negative thought that has kept them stuck. Pt's thought was I've failed.? Pt reported when they think this way, pt gets disheartened and shuts down which results in negative self-talk, poor self-care, and isolation. Pt worked to reframe the thought by finding more rational, realistic ways to look at the thoughts and then processed them within group setting. Pt reframed the thought to ?I'm still trying, success isn't black and white?. Pt appeared to benefit from practicing challenging negative thinking. Pt will continue IOP tx to prevent decompensation, increase healthy communication with supports, and reduce isolation. ? Narrative Note: []
--- NOTE | 2023-07-08 09:05 | BH.SGPN.GN ---
Behaviors/Verbalizations/Mental Status: [] Eye contact is good. Motor activity is appropriate. Appearance is casual. Speech is Appropriate. Mood is depressed. Affect is flat. Thoughts are linear and logical. No evidence of psychosis. Reviewed daily check in sheet and no reports of suicidal ideations or intent. Client Response/Progress/Benefit: [] Daily symptom tracker notes 09/02 for depression and anxiety. Pt was an active participant in group discussion. Attentive. Provided appropriate feedback. Shared that she spent the weekend ? boundary testing?. ? I wanted to figure out what I can do and what I can?t do? mentally and physically. This led to practicing acceptance for her current level of functioning and not placing unrealistic expectations on herself. Able to identify progress from 2 weeks ago, however continues to struggle with her emotions, consistent mood, and overall functioning. Progress noted per pt report. Benefited from group support, encouragement, and feedback. Will continue in IOP to prevent decompensation, increase healthy coping, and improve functioning to return to wor Narrative Note: []
--- NOTE | 2023-07-08 10:07 | BH.SGPN.GN ---
Behaviors/Verbalizations/Mental Status: []Pt alert and oriented, casually dressed and groomed. Eye contact good. Motor activity appropriate. Speech within normal limits. Affect congruent, mood euthymic. Thoughts linear, logical, no signs of hallucinations or delusions. Client Response/Progress/Benefit: [] Pt was actively engaged, providing input, and taking notes throughout session. Connected with the topic of pitfalls and listened to group discussion on internal and external barriers that prevent from choosing a healthier path to mental wellness. Group worked together to identify examples of personal internal pitfalls and pt identified theirs as unrealistic expectations, difficulties with acceptance, negative perspective, fear, and not giving self credit. Pt benefited from group as pt learned to better identify and normalize potential barriers to improving mental health symptoms. Pt also gained awareness of the difference between external triggers and self-sabotaging behaviors. Pt will continue IOP tx to continue working on acceptance, continue use of healthy coping skills, and prevent decompensation.
--- NOTE | 2023-07-08 11:07 | BH.SGPN.GN ---
Behaviors/Verbalizations/Mental Status: []Pt alert and oriented, casually dressed and groomed. Eye contact good. Motor activity appropriate. Speech within normal limits. Affect congruent, mood euthymic. Thoughts linear, logical, no signs of hallucinations or delusions. Client Response/Progress/Benefit: []Pt receptive of session, engaged throughout AEB actively contributing and listening to discussion, as well as taking notes. Pt participated in the experiential activity and did well to communicate ideas with peers, ask questions, and manage emotions. Pt and group processed how being open-minded and having good communication positively impacted the group. Group worked together to identify different coping skills to help manage pitfalls. Pt identified pitfalls they struggle with and shared wanting to work on pitfall of acceptance by reminding herself to continue with her accomplishment log, check-in on her goals to make sure they are realistic, as well as use opposite action. Benefited from identifying personal pitfalls and strategies to overcome these pitfalls. Will continue IOP tx to increase consistent use of healthy coping skills, maintain mood stability, and continue to improve distress tolerance. Narrative Note: []
--- NOTE | 2023-07-10 09:00 | BH.SGPN.GN ---
Behaviors/Verbalizations/Mental Status: [] Pt alert and oriented, casually dressed and groomed. Eye contact good. Motor activity appropriate. Speech within normal limits. Affect congruent, mood dysthymic and anxious. Thoughts linear, logical, reports feeling foggy no signs of hallucinations or delusions. Reviewed pt?s symptom tracker, pt reports no suicidal ideation or intention. Client Response/Progress/Benefit: [] Client responded well to session as evidenced by listening attentively to others, providing feedback, and processing with group. Per symptom tracker client reported a 1/5, with 5 being severe, for depressed mood (which is improved for pt), 2/5 for irritability, and a 1/5 for anxiety. Client reported mental health positive as sending out all of her [place] gifts to friends and family. Additional positive noted as getting feedback from friends that they have seen improvements in her mood and ability to cope. Pt identified several skills aiding in her progress. Reports current stressor as finances. Did well to identify several steps and resources she is using to reduce financial stress. Client seemed to benefit from support from others and challenging anxious thoughts. Client to continue IOP to build coping skill repertoire, improve mood stability, and prevent decompensation. Narrative Note: []
--- NOTE | 2023-07-10 10:15 | BH.SGPN.GN ---
Behaviors/Verbalizations/Mental Status: []Pt alert and oriented, casually dressed and groomed. Eye contact good. Motor activity appropriate. Speech within normal limits. Affect congruent, mood depressed but engaged. Thoughts linear, logical, no signs of hallucinations or delusions. Client Response/Progress/Benefit: [] Pt was an active participant in group discussions and experiential activity. Participated during interactive discussion in which group worked together to define resilience (i.e. continuing to bounce back from hardship; willingness to keep trying) and what makes being resilient hard. Pt shared feeling exhausted and trauma can make it harder to be resilient. Participated during interactive discussion on if resilience is something we are born with or can learn. Able to relate the experiential activity back to topic of resilience. Worked well in small groups to identify strategies to build resilience. Benefited from increased awareness of the role of resilience in mental health and ways to build resilience. Will continue IOP tx to promote use of self-compassion, combat distortions, and improve daily functioning. Narrative Note: []
--- NOTE | 2023-07-10 11:15 | BH.SGPN.GN ---
Behaviors/Verbalizations/Mental Status: [] Eye contact is good. Motor activity is appropriate. Appearance is casual. Speech is Appropriate. Mood is euthymic. Affect is full. Thoughts are linear and logical. No evidence of psychosis. Client Response/Progress/Benefit: [] Pt was an active participant in group discussions. Participated during interactive discussions and in experiential activity with peers. Pt identified 3 resiliency traits they have and how these traits currently help them. Pt identified Making Connections and believes this trait helps her b/c she relies on her support; Avoid seeing crises as insurmountable problems which has helped her trust the process ; and Self-Awareness b/c she is aware of triggers and warning signs. Benefited from practicing resiliency traits during experiential activity and identifying personal resiliency factors.Will continue in IOP to prevent decompensation, stabilize mood, increase healthy coping, and improve functioning. Narrative Note: []
--- NOTE | 2023-07-10 13:59 | BH.MTP_ITS ---
Treatment Plan Review Demographics Date of Admission:: 06/17/23 Date of Treatment Plan Review:: 07/10/23 Admitting Diagnoses:: Major depressive disorder, recurrent, severe without psychosis F 33.2; Generalized anxiety disorder; PTSD; History of anorexia nervosa Current Diagnoses:: Major depressive disorder, recurrent, severe without psychosis F 33.2; Generalized anxiety disorder; PTSD; History of anorexia nervosa Patient Status Patient's Response to Treatment:: Pt has responded well to treatment AEB pt consistently attending IOP sessions and reduction of anxiety and depressive symptoms since admission. Pt contributes well during individual sessions and she is engaged during group sessions. Pt applies coping skills outside of IOP and reports overall mood is improved and pt is gaining more awareness of her distorted thought patterns. Status of Current Problems and Symptoms: Pt continues to endorse a depressed mood, lack of energy, worthlessness at times, guilt, and negative thoughts of self. Pt's symptoms are resolving, but pt has deep-rooted negative core beliefs that reinforce fear of failure and negative thoughts. Pt continues to endorse anxiety, avoidance of looking up different jobs, and pt has recently noticed warning signs of restrictive eating. Pt also reports stressors with finances and car issues. Progress Problem #1: Problem Name:: Depression, hopelessness, worthlessness, and negative thinking patterns. Status of Goals:: Objective 1- complete with ongoing work encouraged. Pt?s DSM-5 scores for thoughts of and SI have decreased by 100% since admission which indicated reduced hopelessness as well. Pt?s depressive scores have decre ased by 33% since admission. Pt reports using opposite action, thought challenging, and stretching. Objective 2- in progress. Pt is working on acceptance of her current functioning and increasing self-compassion. Team Recommendations:: Tx team recommends that pt continue working on these goals as pt can benefit from identifying and reframing distortions and utilizing healthy coping skills. Pt is also encouraged to continue working combatting inappropriate guilt and increasing awareness of her needs and values. Problem #2: Problem Name:: Anxiety, avoidance, and ruminations. Status of Goals:: Objective 1- complete with ongoing work encouraged. Pt?s DSM-5 scores for anxiety have decreased by 33% since admission. Pt reports using deep breathing and opposite action to manage anxiety. Objective 2- in progress. Pt is gaining awareness of the benefits of acceptance and sitting with the uncomfortable. Pt also working on reducing avoidance. Team Recommendations:: Pt is encouraged to continue working on this goal as pt can further reduce anxiety and increase distress tolerance skills. Pt encouraged to continue working on boundary setting and scheduling self-care.
--- NOTE | 2023-07-10 14:00 | BH.MDN ---
Multi-Disciplinary Note Note 45-min Individual: Time Started:: 12:10 Date: 07/10/23 Purpose of session/treatment goals addressed:: To work on goal #1 of pt's tx plan and to review current progress and goals. Another goal was to discuss return to work and plans for pt's future. Eye Contact:: Fair Motor Activity:: Appropriate Appearance:: Casual Speech:: Appropriate and Soft Mood:: Depressed Affect:: Congruent Thoughts:: Linear, Logical and No evidence of hallucinations/delusions noted Staff Interventions:: thought challenging, motivational interviewing, CBT techniques, strengths perspective, reviewed DSM-5, goal setting and taught coping skills (acceptance strategies ) Client Response:: Pt responded well to session, open to meeting with therapist. Pt reports feeling confused and tired about deciding what she wants to do about returning to work or applying for disability. Pt shared belief that she is worried she will have to test the boundary in order to see what pt is able to handle both physically and mentally. Pt became tearful and shared that she knows she is unable to return to work in her current state, but she is also struggling with having no answers for her future. Discussed the thought patterns that are currently keeping pt stuck as well as expectations that have made pt feel unable to access certain resources such as disability. Pt shared she feels like she has been treading water for a long time and that leaving her job and getting disability might give her the ability to just relax but pt also wants to work and expects herself to work. Pt is also stressed about finances, but pt does have a savings. Pt shared recently she has had a hard time eating and this is a warning sign for pt's eating disorder. Pt feels that she is still able to control this at the moment, but wanted to tell therapist for accountability. Pt has been following through with her stretching goal and journaling. Pt still struggles with self-criticism and difficulty accepting herself including strengths and weaknesses. Pt responded well to the discussion of necessary vs unnecessary suffering and what pt could begin to do to reduce unnecessary suffering in her life. Pt responded well to self-compassion techniques used by therapist and is receptive to continuing to work on these strategies. Risks/Concerns:: Pt denies any active SI, plan, or intent as of 07/10/23. Progress Toward Goals/Plan:: Pt is making progress towards her tx goals AEB pt's 35% reduction of overall DSM-5 symptoms since admission. Pt also reports seeing progress in her ability to challenge her perspective and engage in some of her old hobbies. Pt reports she is still unable to concentrate for long periods of time and she is not ready to go back to work as pt feels she will be unable to complete her job duties. Pt continues to endorse ruminations, excessive guilt, low energy, and negative core beliefs that reinforce fear of failure. Pt will continue IOP tx to promote use of healthy coping skills, combat distorted thought patterns, and continue to improve daily functioning. Time Stopped:: 12:55
--- NOTE | 2023-07-12 09:05 | BH.SGPN.GN ---
Behaviors/Verbalizations/Mental Status: [] Pt alert and oriented, neatly dressed and groomed. Eye contact good. Motor activity appropriate. Speech within normal limits. Affect constricted-wearing a mask, mood anxious. Thoughts linear, logical, no signs of hallucinations or delusions. Reviewed pt?s symptom tracker, no risk for suicidal ideation, plan, or intent 07/12/23 Client Response/Progress/Benefit: []Pt responded well to session, attentive and engaged. Pt reports feeling worried this morning, but pt is trying to not be worried. Pt's niece was in the hospital with the flu and pt is worried about people staying healthy for the holidays. Pt shared she is trying to focus on what is in her control, but pt has a hard time letting go of things she cannot control. Pt stated she is working on this by practicing acceptance skills and putting energy into tangible things pt can do. Another mental health win includes pt getting reconnected with an old friend and having a good conversation. Pt appeared to benefit from practicing in the moment thought challenging. Pt will continue IOP tx to promote mood stability, increase acceptance skills, and improve daily functioning. Narrative Note: []
--- NOTE | 2023-07-12 10:10 | BH.SGPN.GN ---
Behaviors/Verbalizations/Mental Status: []Client alert and oriented, casually dressed and groomed. Eye contact good. Motor activity appropriate. Speech within normal limits. Affect congruent, mood content. Thoughts linear, logical, no signs of hallucinations or delusions. Client Response/Progress/Benefit: []Client receptive to session AEB providing input throughout, listening attentively to others, and taking notes. Attentive throughout psychoeducation on the cognitive triangle and maintenance cycles. Worked on identifying own vicious cycle. Engaged in group discussion reviewing the impact of daily activities and behaviors in either reinforcing unhealthy maintenance cycles and depression or assisting in reducing symptoms (?down? vs ?up? activities). Client identified common ?down? activities they engage in as: isolating, substance use, focusing on the negatives, and staying in bed. Common ?Up? activities client identified included: playing with pets, exercise, being silly,, being in a clean space, and playing games. Appeared to benefit from increased awareness of current behaviors and impact these have on mental health. Pt to remain in IOP tx to maintain mood stability, increase use of self-compassion, and prevent decompensation. Narrative Note: []
--- NOTE | 2023-07-12 11:10 | BH.SGPN.GN ---
Behaviors/Verbalizations/Mental Status: [] Eye contact is good. Motor activity is appropriate. Appearance is casual. Speech is Appropriate. Mood is euthymic. Affect is congruent. Thoughts are linear and logical. No evidence of psychosis. Client Response/Progress/Benefit: [] Pt responded well to session, attentive and engaged in group discussions and activity. Group discussed values and the benefits that knowing one's values can have on one's mental health. Pt explored own values and identified personal top values. Pt stated important value is friendship. Client set goals to send one text a day for a week, reaching out to a healthy social support person. Pt appeared to benefit from exploring values and creating a weekly goal. Will continue in IOP to reinforce healthy coping skills, build confidence, and prevent decompensation.
--- NOTE | 2023-07-15 09:00 | BH.SGPN.GN ---
Behaviors/Verbalizations/Mental Status: [] Pt alert and oriented, neatly dressed and groomed. Eye contact good. Motor activity appropriate. Speech within normal limits. Affect congruent-wearing a mask, mood hopeful and frustrated. Thoughts linear, logical, no signs of hallucinations or delusions. Reviewed pt?s symptom tracker, no risk for suicidal ideation, plan, or intent 07/15/23 Client Response/Progress/Benefit: []Pt responded well to session, attentive and providing supportive statements to peers. Pt reports feeling hopeful and like an idiot this morning. Pt shared she had a lightbulb moment this morning when she realized that she had been taking her mental health medications wrong for who knows how long. Pt was angry with herself for all the progress I've lost but surgeon/president helped pt see that she has made progress despite not being on her medications correctly and that is significant. Pt gave herself credit for this and shared she is working on giving herself more alfie and understanding. Pt shared another win today which was allowing herself to rest over the weekend instead of pushing herself too far. Pt appeared to benefit from reflecting on her progress and challenging thoughts in the moment. Pt will continue IOP tx to prevent decompensation, improve self-compassion, and improve daily functioning. Narrative Note: []
--- NOTE | 2023-07-15 10:10 | BH.SGPN.GN ---
Behaviors/Verbalizations/Mental Status: [] Eye contact is fair to good. Motor activity is appropriate. Appearance is casual. Speech is Appropriate. Mood is dysthymic. Affect is congruent. Thoughts are linear and logical. No evidence of psychosis. Client Response/Progress/Benefit: [] Pt was an active participant in group discussions. Attentive during psychoeducation on the 4 communication styles (Passive, Passive-Aggressive, Aggressive, and Assertive) and the obstacles to effective communication. Contributed during interactive discussion on the benefits of communicating effectively which included; having one's needs met, building connection with others, decreases stress and uncertainty, improved relationships, encouragement/increased motivation, increased trust, and increased understanding of others. Worked well in small group in which pt and peers identified the benefits and disadvantages to the different communication styles. Benefited from increased understanding of communication styles and how these can impact effective communication. Pt reports identifying with each communication style in different settings, shared being passive at work, aggressive when in pain, and assertive with close friends and family. Will continue in IOP to prevent decompensation, continue to promote mood stability, and further improve functioning. Narrative Note: []
--- NOTE | 2023-07-16 11:10 | BH.SGPN.GN ---
entified that the communication styles she commonly uses are aggressive, passive, and passive aggressive. She wants to work on being more assertive and hopes to be better at this with my doctors to ensure she doesn't gaslight herself . Benefited from practicing in the moment communication skills as well as increased awareness of communication styles commonly used. Will continue in IOP to prevent decompensation, increase healthy coping, and improve functioning to return to work. Narrative Note: []
--- NOTE | 2023-07-17 09:05 | BH.SGPN.GN ---
Behaviors/Verbalizations/Mental Status: [] Eye contact is good. Motor activity is appropriate. Appearance is casual. Speech is Appropriate. Mood is anxious/irritable. Affect is congruent. Thoughts are linear and logical. No evidence of psychosis. Reviewed daily check in sheet and no reports of suicidal ideations or intent. Client Response/Progress/Benefit: [] Pt was an active participant in group discussion. Attentive. Daily symptom tracker notes 3/5 for anxiety and 2/5 for irritability. Mental health wins noted were I noticed I was taking my medication incorrectly . This was a one b/c since she has been taking correctly she reports increased energy, motivation, clarity, and comprehension. Overall this has helped her mood. Feeling more hopeful about her progress. I'm on the right track . Pt states that due to her physical and mental health issues she is on a truckload of medications which makes her feel broken. Dislikes that her health is dependent on these medications. Group challenged these thoughts and her perspective which was beneficial. Group also provided empathy and support which was beneficial. Will continue in IOP to prevent decompensation, increase healthy coping, and improve functioning to return to work. Narrative Note: []
--- NOTE | 2023-07-17 10:10 | BH.SGPN.GN ---
Behaviors/Verbalizations/Mental Status: [] Eye contact is good. Motor activity is appropriate. Appearance is casual. Speech is Appropriate. Mood is euthymic. affect is congruent. Thoughts are linear and logical. No evidence of psychosis. Client Response/Progress/Benefit: [] Pt active participant AEB pt providing input throughout group discussion. She did appear to listen to others comments. Pt attentive during psychoeducation about defense mechanisms. Showed increased engagement during small group discussions and helped group identify which defense mechanisms were maladaptive, adaptive, or both. Pt started to work with group on identifying how each defense mechanism can impact mental health. Seemed to benefit from gaining awareness about the different defense mechanisms. Pt to continue IOP to continue use of healthy coping skills, challenge distorted thoughts, improve view of self, and prevent decompensation.
--- NOTE | 2023-07-17 11:15 | BH.SGPN.GN ---
Behaviors/Verbalizations/Mental Status: []Pt alert and oriented, casually dressed and groomed. Eye contact good. Motor activity appropriate. Speech within normal limits. Affect congruent, mood content. Thoughts linear, logical, no signs of hallucinations or delusions. Client Response/Progress/Benefit: [] Pt responded well to session, participating in activity and small group discussion. Group reviewed the rest of the defense mechanisms and discussed how these are adaptive, maladaptive, or somewhere in the kwan. Pt participated in the experiential activity which encouraged pts to draw a castle that portrayed their different defense mechanisms. Pt's defense mechanisms included intellectualizing, humor, and rationalizing. Pt shared intellectualizing helped pt survive her medical issues, but pt struggles with allowing herself to feel emotions because of this. Pt reports wanting to work on taking down ?my denial barriers.? Pt appeared to benefit from gaining insight to the different defense mechanisms and learning coping skills. Pt will continue IOP tx to promote mood stability, increase self-compassion, and improve acceptance strategies. Narrative Note: []
--- NOTE | 2023-07-19 09:05 | BH.SGPN.GN ---
Behaviors/Verbalizations/Mental Status: [] Pt alert and oriented, neatly dressed and groomed. Eye contact good. Motor activity appropriate. Speech within normal limits. Affect congruent, mood euthymic. Thoughts linear, logical, no signs of hallucinations or delusions. Reviewed pt?s symptom tracker, no risk for suicidal ideation, plan, or intent 07/19/23 Client Response/Progress/Benefit: []Pt responded well to session, attentive and providing supportive feedback to peers. Pt reports feeling excited this morning as pt is leaving tomorrow to go an visit her sister and her family for the holidays. Pt shared she knows she is making progress because pt feels excited despite knowing there will be stress and conflict over the holiday. Pt stated she was able to be productive yesterday and clean some around the house before her trip. Pt's stressor today is having to deal with prickly personalities but pt feels more confident in managing this. Pt appeared to benefit from reflecting on her wins and giving herself credit. Pt will be gone next week for the holidays, but pt will continue IOP tx when she returns to promote mood stability, further increase daily functioning, and improve self-confidence. Narrative Note: []
--- NOTE | 2023-07-19 10:00 | BH.SGPN.GN ---
Behaviors/Verbalizations/Mental Status: [] Client alert and oriented, casually dressed and groomed. Eye contact good. Motor activity appropriate. Speech within normal limits. Affect congruent, mood euthymic. Thoughts linear, logical, no signs of hallucinations or delusions. Client Response/Progress/Benefit: [] Client responded well to session, contributing to discussion and engaged during the activity. Attentive during discussion on the quote. Client connected with quite stating how we become complacent with our circumstances which ends up hurting us more. Group identified the benefits of change which included: personal growth, increased confidence, improving mental health, and creating momentum. Worked with the group to identify barriers to change, which included: uncomfortable emotions such as anxiety, lack of motivation, fatigue, pain, and physical barriers. Client participated along with group in activity where they identified and discussed the emotions related to change. Benefited from increased awareness and understanding of emotions, benefits, and barriers related to change. Client to conintue IOP to increase self care, regulate to emotions and improve overall functioning. Narrative Note: []
--- NOTE | 2023-07-19 15:27 | BH.MDN_ITS ---
Multi-Disciplinary Note Note 45-min Individual: Time Started:: 11:20 Date: 07/19/23 Purpose of session/treatment goals addressed:: To discuss progress, prepare for upcoming holidays, and identify strategies to maintain progress over the holidays. Eye Contact:: Good Motor Activity:: Appropriate Appearance:: Casual Speech:: Appropriate Mood:: Euthymic Affect:: Congruent Thoughts:: Linear, Logical and No evidence of hallucinations/delusions noted Staff Interventions:: thought challenging, motivational interviewing, CBT techniques, mindfulness skills, strengths perspective and other (discussed pt's ED triggers and checked in with pt's eating patterns this week) Client Response:: Pt responded well to session, open to meeting with therapist. Pt shared she is looking forward to seeing her family this holiday even though pt knows that there will be some conflict. Pt stated she also has been better with eating and feels that her low appetite could have been related to a medication issue. Pt has a plan for self-care while visiting with her family and pt also has been mentally practicing acceptance to help tolerate some of her father's behaviors. Pt shared that her biggest stressor right now is her 's mood and feeling responsible to make him feel better. Pt stated she has guilt because he has done a lot for pt while she has worked on her physical and mental health. Discussed how pt currently provides support for her partner t o help combat pt's distortions that she does not do much for him. Pt able to identify the ways she contributes to the relationship and this led to a discussion of love languages and encouraging pt to talk with her partner about how he feels most supported. Pt also gained insight that it is not pt's responsibility to manage her partner's emotions and that it is his responsibility to tell pt what he needs. Pt plans to have a talk with her partner about this over the holidays. Risks/Concerns:: Denies any SI or thoughts of . Progress Toward Goals/Plan:: Pt continues to make progress towards tx goals AEB pt's self-report of applying healthy coping skills, improving mood and motivation, and increased ability to challenge negative thinking patterns. Pt reports looking forward to seeing her family this year instead of dreading the probable conflicts that could arise. Pt continues to endorse a depressed mood, anxiety, some avoidance, guilt, and physical pain. Pt will be gone from [facility] tx for one week for the holidays, but then return on 07/31/23. Pt will continue IOP tx to promote gains, reinforce healthy coping skills, and continue to combat distorted thinking patterns. Time Stopped:: 12:00
== END 2023-07-28 23:59 ==
LOC: BHIOP 07:09
PROVIDERS: PCP Pediatrics; Referring Provider Psychiatry & Neurology Psychiatry; Visit Provider Psychiatry & Neurology Psychiatry
DX: F33.2 Major depressive disorder, recurrent severe without psychotic features (principal); F41.1 Generalized anxiety disorder; F43.10 Post-traumatic stress disorder, unspecified; F50.00 Anorexia nervosa, unspecified; Z79.899 Other long term (current) drug therapy
CPT/HCPCS: S9480; 90834; 90853

== ENCOUNTER 2023-07-30 07:25 | Outpatient (RCR) | payer OTHER, SELFPAY ==
[2023-07-29 00:38] VITALS: BP 115/79; PULSE 66
--- NOTE | 2023-07-31 09:05 | BH.SGPN.GN ---
Behaviors/Verbalizations/Mental Status: [] Pt alert and oriented, casually dressed and groomed. Eye contact good. Motor activity appropriate. Speech within normal limits. Affect congruent, mood stressed. Thoughts linear, logical, no signs of hallucinations or delusions. Reviewed pt?s symptom tracker, no risk for suicidal ideation, plan, or intent 08/01/23 Client Response/Progress/Benefit: [] Pt responded well to session, attentive and engaged. Pt reports feeling conflicted this morning as pt recently had a medication change catch up to me which made pt feel more fatigued and experience strong emotions. Pt stated she has been trying to give myself alfie rather than over-identifying with these emotions and criticizing herself. Pt reported that spending time with family was overall positive, with some messy moments. Pt is also stressed about making a decision about work and asked to be seen individually today. Pt appeared to benefit from reflecting on her use of self-compassion. Pt will continue IOP tx to promote mood stability, reduce negative thinking patterns, and improve self-compassion. Narrative Note: []
--- NOTE | 2023-07-31 10:05 | BH.SGPN.GN ---
Behaviors/Verbalizations/Mental Status: []Pt alert and oriented, casually dressed and groomed. Eye contact good. Motor activity appropriate. Speech within normal limits. Affect congruent, mood content. Thoughts linear, logical, no signs of hallucinations or delusions. Client Response/Progress/Benefit: []Pt was an active participant during interactive group discussions. Attentive during psychoeducation on the six types of boundaries. Pt along with peers contributed to interactive discussion on defining what a boundary is and group identified challenges to setting boundaries. Pt discussed personal barriers of not wanting to hurt people?s feelings and fear of confrontation. Group reviewed the 6 types of boundaries. Pt stated she does well with sexual boundaries, but feels she needs to improve upon material, and time. Pt benefited from increased awareness and insight on the importance/benefit to setting healthy boundaries. Will continue IOP tx to increase healthy communication skills, continue to promote gains, and prevent decompensation. Narrative Note: []
--- NOTE | 2023-07-31 11:15 | BH.SGPN.GN ---
Behaviors/Verbalizations/Mental Status: []Pt alert and oriented, casually dressed and groomed. Eye contact good. Motor activity appropriate. Speech within normal limits. Affect congruent, mood dysthymic. Thoughts linear, logical, no signs of hallucinations or delusions. Client Response/Progress/Benefit: []Pt responded well to session AEB listening attentively to peers and providing input throughout. Pt attentive during psychoeducation on the different boundary styles. Pt identified she is more flexible with her partner and close friends. Stated she is rigid with letting things out with her family and flexible with letting them share information. Pt was given a handout on strategies for healthy boundary setting. Identified wanting to practice self-reflection to improve her own boundaries. Appeared to benefit from increasing insight to boundary setting and the impacts on mental health. Seemed to benefit from increased awareness of boundary styles and strategies to improve setting boundaries. Will continue IOP tx to challenge thought distortions, continue use of healthy coping skills, and prevent decompensation. Narrative Note: []
--- NOTE | 2023-07-31 11:47 | PCM.BH.PN ---
Progress Note Progress Note: History of Present Illness/Interim History: The patient is a 38-year-old single female with a history of depression, anxiety, PTSD and chronic pain who is seen in follow-up at the [facility] behavioral health [facility]. Last saw the patient 1 month ago. Per staff the patient has been consistent in attendance and engaged in the program. She has been making consistent progress. The patient states that she has been doing overall much better and her mood has been improving and is been less depressed. The patient states that her outpatient provider increased her Zoloft to 100 mg of liquid Zoloft due to her many allergies and this increase was supposed to have happened earlier when she received a 40 mg dose she says. She has been taking it barely a week and at first felt very tired on it but that is now resolved. Now she has more energy but then yesterday she feels like maybe it made her feel little irritable and angry. The patient has had a new stress over the holidays as her and her sister think that her 72-year-old father may be showing signs of dementia and she is stressed by this. They discussed it with her parents and her mom and dad are both fairly resistant to this idea and fairly resistant to getting him evaluated. The patient is sleeping about 10 hours a night. She denies passive thoughts of , suicidal ideation, plan for suicide, thoughts of self-harm, homicidal ideation, hallucinations or delusions. She feels she is learning valuable skills in the IOP such as setting boundaries. Current Psychiatric Medications: [] Seroquel 200 mg p.o. nightly; Zoloft 100 mg of liquid Zoloft daily (increased 1 week ago); gabapentin 300 mg p.o. 3 times daily; topiramate 25 mg p.o. daily for headache. Mental Status Examination: [] The patient is a 38-year-old female who appears normal for stated age and is casually dressed and groomed with good hygiene. She has no psychomotor agitation or retardation and is ambulatory with a normal gait. She is cooperative and pleasant during the interview. Eye contact is good at times but she sometimes closes her eyes when she speaks about certain subjects. Speech is normal rate and rhythm and fluent with no pressure. Mood is mildly depressed. Affect is mildly constricted. Thought process is goal-directed and organized. Thought content: Patient remains hopeful for the future. There is no evidence of passive thoughts of , suicidal ideation, thoughts of self-harm, homicidal ideation, plan for suicide, hallucinations or delusions. Patient is worried about her father. Reality testing is intact. Judgment is intact. Insight is good. Impulsivity is low to moderate. Diagnoses: [] 1. Major depressive disorder, recurrent, severe without psychosis (resolving) 2. Generalized anxiety disorder 3. PTSD 4. History of anorexia nervosa 5. Work and primary support issues Plan: [] The patient will continue the IOP in behavioral health as it seems to be benefiting her. She felt safe during the interview and if it anytime she does not feel safe she will let us know or go to the emergency room. The risks, options, possible complications and side effects of the medications were again discussed with the patient and she understands accepts these. Her outpatient psychiatrist will manage her medications as he is familiar with the manufacturers that she can tolerate due to her severe allergies. Discussed with the patient that she should give the Zoloft a few more days or up to a week and if she continues to have side effects then she may have to go back down on the dose. She will continue to follow-up with her medical and psychiatric providers and I will see the patient in follow-up while she is in the IOP.
--- NOTE | 2023-07-31 14:30 | BH.MDN ---
Multi-Disciplinary Note Note 30-min Individual: Time Started:: 12:08 Date: 07/31/23 Purpose of session/treatment goals addressed:: To help pt process her decision to resign from her job. Another goal was to help challenge distorted thought patterns. Eye Contact:: Good Motor Activity:: Appropriate Appearance:: Casual Speech:: Soft Mood:: Anxious, Depressed and Other (disappointed) Affect:: Congruent (tearful throughout session) Thoughts:: Linear, Logical and No evidence of hallucinations/delusions noted Staff Interventions:: thought challenging, motivational interviewing, CBT techniques, discharge planning, strengths perspective and goal setting Client Response:: Pt responded well to session, open to meeting with therapist. Pt reports feeling low today but overall pt feels that she is still coping well. Pt shared the holidays went well and there were some blow ups but it all went better than expected. Pt reported her she realized that her father is demonstrating signs of dementia and pt shared her mother is in denial. Pt asked if she wants to process this, but pt wanted to process how pt should go about quitting her job. Pt was tearful and shared that she knows she needs to make this decision, but pt has been avoiding because once I send the email it's real. Discussed the thoughts leading up to pt's choice to quit which helped pt validate her reasoning. Pt recognizes that going back to that job would be unrealistic and cause more harm than benefit to her overall health. Pt stated she feels both relief and grief about leaving this job because at one point pt thought she would retire from this job. Normalized these feelings and compared it to leaving a toxic relationship. Pt also processed her complicated feelings about advocating for herself and taking care of her mental and physical health. Pt shared that for years she viewed stepping back from the workforce as a failure, but pt is learning that it is not and maybe taking a break from would be best for pt's mind and body. Pt plans to reach out to HR today. Risks/Concerns:: Pt denies any active SI and reports no thoughts of . Progress Toward Goals/Plan:: Pt continues to make progress towards her tx goals AEB pt's consistent application of coping skills, improved ability to challenge distortions, and decision to advocate for her mental health. Pt's biggest stressors right now are deciding to resign from her job and her father demonstrating signs of dementia. Pt will contact her work today and her discharge from IOP tx will be determined on how pt manjula with the changes over the next week. Pt is established with outpatient counseling and Dr. Amaya met with pt today. Pt will continue IOP tx to promote mood stability, increase emotionally support, and prevent decompensation. Time Stopped:: 12:38
--- NOTE | 2023-08-02 09:01 | BH.SGPN.GN ---
Behaviors/Verbalizations/Mental Status: [] Pt alert and oriented, Casually dressed and groomed. Eye contact good. Motor activity appropriate. Speech within normal limits. Affect congruent, mood anxious. Thoughts linear, logical, no signs of hallucinations or delusions. Reviewed pt?s symptom tracker, no risk for suicidal ideation, plan, or intent. Client Response/Progress/Benefit: []Client responded well to session as evidenced by listening attentively to others and sharing with others. Per symptom tracker client reported a 1/5, with 5 being severe, for depressed mood and a 2/5 for anxiety. Client reported mental health positive as officially being unemployed . Client stated she finally made the choice to leave her job that was toxic to her. Client reported she feels immense relief knowing she doesn't have to return to this environment. Stated additional mental health positive as having a positive birthday celebration. Reported current stressor is idnetifying her next steps for her career path. Seemed to benefit from support from peers. Client to continue IOP to promote use of healthy coping skills, challenge distorted thoughts, and prevent decompensation.
--- NOTE | 2023-08-02 10:10 | BH.SGPN.GN ---
Behaviors/Verbalizations/Mental Status: [] Client alert and oriented, casually dressed and groomed. Eye contact good. Motor activity appropriate. Speech within normal limits. Affect congruent, mood euthymic. Thoughts linear, logical, no signs of hallucinations or delusions. Client Response/Progress/Benefit: [] Client was an active participant, AEB taking notes and providing input in group discussions and activities. Attentive during psychoeducation. Client engaged during interactive discussion in which the group defined self-care and discussed its benefits. Group discussed barriers to engaging in self-care as well as benefits which included; decreased irritability, decreased stress/anxiety, improved physical health, increased productivity, etc. Client participated in small group where they worked to identify common self-care ?myths? (self-care is selfish, self-care is self-indulgent, self-care is just personal hygiene, self-care should be fun, self-care is too time consuming, I don?t deserve it, self-care means I?m not being productive).Benefited from increased awareness of self-care, its benefits, and the consequences of not utilizing self-care strategies. Will continue IOP tx to prevent decompensation, increase healthy coping skills, and to improve functioning. Narrative Note: []
--- NOTE | 2023-08-02 11:10 | BH.SGPN.GN ---
Behaviors/Verbalizations/Mental Status: []Pt alert and oriented, neatly dressed and groomed. Eye contact good. Motor activity appropriate. Speech within normal limits. Affect congruent, mood euthymic. Thoughts linear, logical, no signs of hallucinations or delusions. Client Response/Progress/Benefit: [] Client engaged participant AEB completing self-assessment worksheet and providing input throughout discussion. Client completed worksheet identifying current self-care practices and what self-care activities client wants to start using. Client selected financial ?self-care to begin practicing more consistently. Client plans to do this by making a decision what she wants to do regarding long-term disability. Appeared to benefit from completing the self-care evaluation and gaining insights into current self-care practices, as well as identifying areas in which client would like to improve upon. Client will continue IOP tx to promote gains, reduce negative thinking patterns, and further increase self-compassion. Narrative Note: []
--- NOTE | 2023-08-05 09:05 | BH.SGPN.GN ---
Behaviors/Verbalizations/Mental Status: [] Pt alert and oriented, casually dressed and groomed. Eye contact good. Motor activity appropriate. Speech within normal limits. Affect congruent, mood anxious and dysthymic. Thoughts linear, logical, no signs of hallucinations or delusions. Reviewed pt?s symptom tracker, no risk for suicidal ideation, plan, or intent 08/05/23 Client Response/Progress/Benefit: []Pt responded well to session, participating in processing and providing supportive feedback to group. Pt reports she is processing this morning as she received concerning news last night. Explained that her sister called to inform pt that their father's dementia is progressing and he recently made a major impulsive purchase. Pt expressed wanting to work with the family on how to best support and care for her father, while ensuring she does not take on more than she can realistically handle at this time. Expressed plans to give herself time to process before reaching back out to her sister to create an action plan. Pt went on to indicate that outside of this stressor, she has continued to make consistent progress in managing her mental health sx. Pt reports taking action steps to apply for disability and COBRA since quitting her job, which pt reports is a relieve. Additional win noted as spending time with her partner's family over the weekend and allowing herself to enjoy herself despite outside stressors. Pt appeared to benefit from self-reflection on areas of progress, as well as from group support. Pt will continue IOP tx to promote mood stability, increase communication/conflict resolution skills, and prevent decompensation.
--- NOTE | 2023-08-05 10:20 | BH.SGPN.GN ---
Behaviors/Verbalizations/Mental Status: []Pt alert and oriented, casually dressed and groomed. Eye contact good. Motor activity appropriate. Speech within normal limits. Affect constricted, mood dysthymic. Thoughts linear, logical, no signs of hallucinations or delusions. Client Response/Progress/Benefit: [] Pt was engaged and open to the discussion and appeared to respond well to the group. Pt used active listening and gave feedback during group discussion. Pt stated belief that she has a more positive perspective now than when she started IOP. Pt shared she still has some components of a negative perspective ?because it was a huge part of my life for years.? However, now pt can give herself credit, see her progress, and be more engaged because of her positive perspective. Pt appeared to benefit from increasing awareness of different perspectives and how they can affect mental health. Pt will continue IOP treatment to promote mood stability, further decrease negative thinking, and improve self-compassion. Narrative Note: []
--- NOTE | 2023-08-05 11:10 | BH.SGPN.GN ---
Behaviors/Verbalizations/Mental Status: []Pt alert and oriented, casually dressed and groomed. Eye contact good. Motor activity appropriate. Speech within normal limits. Affect congruent, mood euthymic. Thoughts linear, logical, no signs of hallucinations or delusions. Client Response/Progress/Benefit: []Pt was attentive and contributed to group discussion. Pt worked with group to identify strategies that can help with challenging negative perspective. Pt completed strengths exploration worksheet, identifying wisdom, empathy, kindness, open mindedness, and persistence as personal strengths. Pt able to acknowledge how these strengths are helping pt and can continue to help pt in mental health journey. Pt identified wanting to work on getting back to her strength of social awareness by leaning on strengths of persistence and flexibility. Benefited from identifying personal strengths and strategies for enhancing use of identified strengths. Pt will continue IOP tx to continue use of healthy coping skills, challenge distortions, and prevent decompensation.
--- NOTE | 2023-08-07 09:05 | BH.SGPN.GN ---
Behaviors/Verbalizations/Mental Status: [] Eye contact is good. Motor activity is appropriate. Appearance is casual. Speech is Appropriate. Mood is depressed. Affect is congruent. Thoughts are linear and logical. No evidence of psychosis. Reviewed daily check in sheet and no reports of suicidal ideations or intent. Client Response/Progress/Benefit: [] Pt participated at times during group discussion. Attentive. Daily symptom tracker notes 08/02 for anxiety, depression, and irritability. Mental health wins were included following through with paperwork related to insurance it was a lot and it was scary . She decided to resign from her job last week and her future remains uncertain. Unsure if she will be able to work again. She is getting encouraged to seek SSDI for both her physical and mental health struggles. Uncertainly about her future and her functioning has led to mental health struggles. Insight that she is utilizing skills such as reframing and challenging thoughts. She is also listening to her body and what it needs . Resting and taking naps when needed rather than pushing herself. Grieving her previous life before medical issues and mental health struggles, however able to identify progress since starting IOP. I would be more of a mess w/o this place . Peer was able to provide support and empathy during his transition from work to SSDI which was beneficial. Will continue in IOP to prevent decompensation, stabilize mood, and to increase healthy coing skills. Narrative Note: []
--- NOTE | 2023-08-07 10:10 | BH.SGPN.GN ---
Behaviors/Verbalizations/Mental Status: [] Client alert and oriented, casually dressed and groomed. Eye contact good. Motor activity appropriate. Speech within normal limits. Affect congruent, mood euthymic. Thoughts linear, logical, no signs of hallucinations or delusions. Client Response/Progress/Benefit: [] Client responded well to session AEB sharing and listening attentively to others. Group provided examples of benefits of having social support, including: feeling like you matter, security, and motivation. Client also participated in group discussion regarding the barriers to accessing support including: not reaching out, lack of communication, and over using certain supports.Client shared with group personal barriers which included denial and access kept her from using support. Client participated in experiential activity illustrating the impact communication, boundaries, and patience play in creating healthy support systems. Client appeared to benefit from increased knowledge of the benefits of social support and greater self-awareness. Will continue IOP tx to prevent decompensation, increase use of self care, and improve overall functioning. Narrative Note: []
--- NOTE | 2023-08-07 11:10 | BH.SGPN.GN ---
Behaviors/Verbalizations/Mental Status: [] Client alert and oriented, casually dressed and groomed. Eye contact good. Motor activity appropriate. Speech within normal limits. Affect congruent, mood euthymic. Thoughts linear, logical, no signs of hallucinations or delusions. Client Response/Progress/Benefit: [] Client was an active participant throughout AEB contributing to discussion, providing personal examples, and taking notes. Client processed emotions felt in the activity and how they coped in the moment. Client provided input during discussion on the types of support our supports can provide. Client able to identify current support system and barriers that get in the way of using supports by drawing out their own support net. Client reported after identifying what type of supports they receive; they gained awareness that they could benefit from more tangible and informational supports. Client identified steps to achieve this by googling for a disability line repairer, pricing out cleaning services, and setting up a better schedule. Client shared increasing these supports will help them by feeling more confident. Client seemed to benefit from identifying the type of support client needs to work on improving. Client recommended to continue IOP tx to prevent decompensation,reduce isolation, and increase emotional regulation skills. Narrative Note: []
--- NOTE | 2023-08-08 10:21 | BH.MDN ---
Multi-Disciplinary Note Note 30-min Individual: Time Started:: 12:15 Date: 08/07/23 Purpose of session/treatment goals addressed:: To address any current stressors and identify aftercare plan. Another goal was to review strengths and progress. Eye Contact:: Good Motor Activity:: Appropriate Appearance:: Casual Speech:: Appropriate Mood:: Euthymic and Anxious Affect:: Congruent Thoughts:: Linear, Logical and No evidence of hallucinations/delusions noted Staff Interventions:: thought challenging, CBT techniques, discharge planning and strengths perspective Client Response:: Pt responded well to session, open to meeting with therapist. Pt reports feeling overall pretty good actually. Pt made the decision to quit her job last week and she has officially resigned. Pt stated she received a lot of support from her supports and they all responded with it's been a long time coming. Pt shared she understands there are a lot of things she will have to face that feel overwhelming, such as, budgeting, figuring out long-term disability, and telling her parents. Pt shared she knows finding another job will be a long-term goal because pt's comprehension and memory are still not at pt's baseline. Pt stated she feels more capable of managing these stressors now and pt finally feels that she has the energy needed to face these things. Pt compared her pre IOP self to a person who felt like they were constantly treading water and now pt feels that she can rest and recuperate. Pt has outpatient counseling set up and pt also plans to participate in the IOP aftercare program. Pt was given a maintenance plan and pt will begin working on it for homework. Risks/Concerns:: No SI or thoughts of reported. Progress Toward Goals/Plan:: Pt continues to make progress towards her tx goals AEB pt's self-report of making healthier decisions about her future, less negative thinking patterns, increased motivation and energy, and improved functioning. Pt is having some side effects from her Zoloft and this therapist will discuss with Dr. Amaya prior to pt's discharge. Pt plans to continue IOP tx for three more days to reinforce healthy coping skills, establish aftercare, and further improve mood stability. Pt will discharge next Saturday06/14/23. Time Stopped:: 12:45
--- NOTE | 2023-08-09 09:05 | BH.SGPN.GN ---
Behaviors/Verbalizations/Mental Status: [Patient was alert and oriented, appropriately dressed and groomed. Eye contact was good, motor activity normal, speech within normal limits. Affect congruent, mood content. Thoughts linear, logical, no signs of hallucinations or delusions. Reviewed Patients symptom tracker and the patient reports low in anxiety/panic attacks and does not report symptoms in depressed mood, agitation/irritability/anger, self-harm urges, or suicidal thoughts/risk.] Client Response/Progress/Benefit: [Patient was engaged and open to the discussion. Patient reported her mood to be ?cautiously optimistic?. Patients first win is that she has been feeling so much mentally better after quitting her job last week. Patients second win is that she has made a list of chores she can do when she is having a bad ?physical health? day because she noticed she focused on what she can?t do instead. Patients stress is finances because of the lack of income and her father because something is going on with him. Patient was interactive and respectful with other group members about their mental wins and stressors. Patient benefited from the discussion by listening to feedback and giving input on her peer?s stressors and mental health wins. Patient will continue with IOP treatment to help develop healthy skills, promote mood stability, and improve distress tolerance. ] Narrative Note: []
--- NOTE | 2023-08-09 10:10 | BH.SGPN.GN ---
Behaviors/Verbalizations/Mental Status: [] Eye contact is good. Motor activity is appropriate. Appearance is casual. Speech is Appropriate. Mood is euthymic. Affect is full. Thoughts are linear and logical. No evidence of psychosis. Client Response/Progress/Benefit: [] Patient was an active participant in group discussions. Attentive during psychoeducation on growth mindset. Participated during the activity. Interactive group discussion on growth mindset in which group verbalized their current fixed mindsets and how they affect their mental health. Patient shared common fixed mindset thoughts they have which included I'm never getting better; I will be judged if I'm more open with my challenges; Things will always be a struggle?. These thoughts leads to difficulty finding hope; strain on mental energy; stopped me from asking for help . Patient benefited from increased awareness of growth mindset and fixed thoughts and how fixed thoughts impact their mental health. Will continue in IOP to maintain gains, prevent decompensation, and to stablize mood. Narrative Note: []
--- NOTE | 2023-08-09 11:15 | BH.SGPN.GN ---
Behaviors/Verbalizations/Mental Status: []Pt alert and oriented, casually dressed and groomed. Eye contact good. Motor activity appropriate. Speech within normal limits. Affect congruent, mood content. Thoughts linear, logical, no signs of hallucinations or delusions. Client Response/Progress/Benefit: [] Pt was an active participant during activity and discussion AEB providing some input, connecting with peers, as well as taking notes throughout. Pt did well to engage as group worked on identifying characteristics and benefits of adopting a growth mindset. Worked with fellow participants in reframing the example fixed thoughts into growth mindset thoughts. Pt worked on changing own fixed thought of I'm never getting better to a more growth mindset thought of I'm working towards healing and have support. It's tough, but I can do it if I keep trying . Receptive of discussing benefits of growth mindset and brainstorming strategies for prompting growth-mindset. Pt appeared to benefit from working in small groups to challenge own thoughts and help peers. Pt will continue IOP tx to promote ongoing mood stability, continue to challenge negative thought patterns, and further improve daily functioning. Narrative Note: []
--- NOTE | 2023-08-12 09:05 | BH.SGPN.GN ---
Behaviors/Verbalizations/Mental Status: [Patient was alert and oriented, appropriately dressed and groomed. Eye contact was good, motor activity normal, speech within normal limits. Affect congruent, mood content. Thoughts linear, logical, no signs of hallucinations or delusions. Reviewed Patients symptom tracker and the patient reports no symptoms in depressed mood, anxiety/panic attacks, agitation/irritability/anger, self-harm urges, or thoughts/risk of suicide. ] Client Response/Progress/Benefit: [Patient was engaged and open to the discussion. Patient reported her mood to be ?tired?. Patients first win was that she was not late today. Patient stated she woke up with enough time to start her car and brush it off which she has not done in the past few days. Patients second win was that she has now made a list of self-care and stretches that she knows she can do on days her physical health is bad. Patient described her stressor as being revolved around money and her health insurance. Patient was interactive and respectful with other group members about their mental wins and stressors. Patient benefited from the discussion by listening to feedback and giving input on her peer?s stressors and mental health wins. Patient will continue with IOP treatment to help develop healthy skills, promote mood stability, and improve distress tolerance. ] Narrative Note: []
--- NOTE | 2023-08-12 10:10 | BH.SGPN.GN ---
Behaviors/Verbalizations/Mental Status: [] Eye contact is good. Motor activity is appropriate. Appearance is casual. Speech is Appropriate. Mood is euthymic. Affect is congruent. Thoughts are linear and logical. No evidence of psychosis. Client Response/Progress/Benefit: [] Pt was an active participant in group discussions. Attentive during psychoeducation AEB by note taking and providing some input. Pt worked along with peers in small groups to define guilt, inappropriate guilt, and appropriate guilt. Interactive discussion on examples of both inappropriate and appropriate guilt. Pt identified a personal example of inappropriate guilt leaving her job because it was toxic and how this impacted their mental health. Benefited from increased awareness of guilt and the differences between appropriate and inappropriate guilt. Will continue in IOP to promote use of healthy coping skills, continue to build confidence, and prevent decompensation.
--- NOTE | 2023-08-12 11:10 | BH.SGPN.GN ---
Behaviors/Verbalizations/Mental Status: []Pt alert and oriented, neatly dressed and groomed. Eye contact good. Motor activity appropriate. Speech within normal limits. Affect congruent, mood confident. Thoughts linear, logical, no signs of hallucinations or delusions. Client Response/Progress/Benefit: [] Pt engaged participant AEB listening attentively to others and providing input throughout group. Pt worked with their small group to identify strategies to manage inappropriate guilt. Pt stated pt often feels inappropriate guilt when pt practices self-care and advocates for her needs. Pt gave the example of leaving work to come to IOP and pt shared she now feels much less guilt about this. Pt wants to work on combatting inappropriate guilt by practicing self-compassion and maintaining her boundaries. Pt seemed to benefit from learning about strategies to manage appropriate and inappropriate guilt. Pt to continue IOP to promote gains, improve self-compassion, and reinforce healthy coping skills. ? Narrative Note: []
--- NOTE | 2023-08-13 14:07 | BH.AFTERPLAN ---
Aftercare Plan Demographics Treatment End Date:: 08/14/23 Psychiatrist:: Rita Amaya Psychiatrist Office #:: [phone] [facility]/IOP Therapist:: Dia Gutierrez Therapist Phone #:: [phone] Medications Home Medications albuterol sulfate 90 mcg/actuation aerosol inhaler (Ventolin HFA) 2 puff inhalation Q4H PRN PRN Sob &/Or Wheezing 11/08/14 cyanocobalamin (vitamin B-12) 1,000 mcg/mL injection solution 100 mcg subcut Q14D 11/08/14 levomefolate calcium 15 mg tablet (L-Methylfolate) 15 mg PO DAILY 11/08/14 budesonide-formoterol HFA 160 mcg-4.5 mcg/actuation aerosol inhaler (Symbicort) 2 puff inhalation BID 06/19/23 fludrocortisone 0.1 mg tablet 0.1 mg PO DAILY 06/19/23 gabapentin 250 mg/5 mL oral solution 300 mg PO TID 06/19/23 propranolol 20 mg tablet 20 mg PO TID 06/19/23 quetiapine 200 mg tablet 200 mg PO QHS 06/19/23 sertraline 20 mg/mL oral concentrate 50 mg PO DAILY 06/19/23 topiramate 25 mg sprinkle capsule 25 mg PO DAILY 06/19/23 Plan Details Progress/Aftercare Plan Details:: Roxana has responded well to treatment as evidenced by Roxana consistently attending IOP sessions and her reduction of DSM-5 scores since admission. Roxana was always attentive and receptive to learning during group and individual sessions. Roxana actively applied coping skills outside of IOP and reports overall her mood is improved and she is functioning better than she was several months ago. Roxana?s overall symptom reduction is 57% since admission with anger decreasing by 67%, depression decreasing by 50%, suicidal thoughts decreasing by 100%, and anxiety decreasing by 17%. Roxana has increased self-confidence in her ability to manage stressors, emotions, and her distorted thinking patterns. Most importantly, Roxana has gained self-compassion, become more vulnerable, and increased understanding of right to self-advocacy. Strategies for Success:: 1. Opposite action! Continue to break that cycle of anxiety, guilt, and depression by not letting emotions be the only drivers of your bus. 2. Remember that thoughts are thoughts NOT facts! You have power in if you give thoughts the time of day or not. 3. self-care! You deserve to take time for you and you also deserve to face the not so fun self-care like setting boundaries and advocating for your needs 4. Self-compassion! You are human and you will make a mistake?BUT that doesn?t mean you are a failure or not good enough. Give yourself credit for all the wonderful things you do. 5. Continue to practice acceptance and remember acceptance means loving this version of you 6. Practice positive self-talk and keep track of your wins. 7. Remember progress isn?t linear! You may have a setback or bump in the road, but that doesn?t mean you?ve lost all progress. 8. self-reflection and self-awareness. 10. Live in the ramachandran!! Appointments Appointments/Referrals to Other Services:: 1. Dr. Rae for medication management. 2. [facility] for individual therapy 3. IOP aftercare starting 08/15/23 at 2:00pm
--- NOTE | 2023-08-14 11:15 | BH.SGPN.GN ---
Behaviors/Verbalizations/Mental Status: []Pt alert and oriented, casually dressed and groomed. Eye contact good. Motor activity appropriate. Speech within normal limits. Affect congruent, mood euthymic. Thoughts linear, logical, no signs of hallucinations or delusions. Client Response/Progress/Benefit: [] Pt responded well to session AEB taking notes and contributing to discussion throughout. Pt engaged as group continued discussion on acceptance and the mental health benefits of practicing acceptance. Pt and peers identified what makes acceptance challenging and pt completed a self-reflection exercise on what is hard to accept in pt's life. Pt?s last day, so she reflected on her growth with acceptance. Pt shared it was hard for her to accept that her physical health declined and pt could no longer be active like she was before. Pt stated she has been able to challenge her perspective and set more realistic goals for the current version of herself. Pt appeared to benefit from gaining insight and learning strategies to increase acceptance. Pt will discharge from IOP tx today as pt has accomplished her tx goals and no longer meets criteria for IOP level of care. ? Narrative Note: []
--- NOTE | 2023-08-14 14:31 | BH.DS_ITS ---
Discharge Summary Demographics Date of Admission:: 06/17/23 Discharge Date: 08/14/23 Presenting Problems at Admission:: Pt is a 37-year-old female with a history of MDD, LAUREN, and PTSD. Pt was referred to [facility] tx by her outpatient therapist due limited benefit from traditional counseling alone. Pt reports significant decompensation since 05/07/23 and her mental health has been impacting all areas of functioning. Triggering event was being off Seroquel for 4 days and pt feels that she has not bounced back. Pt endorses a depressed mood, numbness, poor sleep, memory issues, lack of energy, ruminations, crying spells, and poor appetite. Pt also endorses low motivation, anhedonia, negative thinking patterns, excessive guilt, and avoidance. Pt is on FMLA from work and pt feels unable to function at home. Discharge Diagnoses:: Major depressive disorder, recurrent, severe without psychosis F 33.2; Generalized anxiety disorder; PTSD; History of anorexia nervosa Reason for Discharge:: Pt has accomplished her tx goals AEB pt's reduction in overall symptoms, self-report of improved functioning, and self-report of improved mood. Pt not longer meets criteria for [facility] level of care and will follow up with individual therapy and [facility] aftercare group. Treatment Progress During Treatment & Response: Pt has responded well to treatment as evidenced by pt consistently attending IOP sessions and her reduction of DSM-5 scores since admission. Pt was always attentive and receptive to learning during group and individual sessions. Pt actively applied coping skills outside of IOP and reports overall her mood is improved and she is functioning better than she was several months ago. Pt?s overall symptom reduction is 57% since admission with anger decreasing by 67%, depression decreasing by 50%, suicidal thoughts decreasing by 100%, and anxiety decreasing by 17%. Pt has increased self- confidence in her ability to manage stressors, emotions, and her distorted thinking patterns. Most importantly, pt has gained self-compassion, become more vulnerable, and increased understanding of right to self-advocacy. Issues Still to be Addressed:: Pt can continue to benefit from working on acceptance, self-compassion, developing more positive core beliefs, setting boundaries, and combating negative thinking patterns. Pt also wants to continue making self-care a priority and figure out what she wants to do with her future. Discharge Recommendations/Instructions:: Pt will continue seeing Dr. Rae for medication management. Pt reports plan to schedule an appointment again now that she is out of IOP. Pt last saw Dr. Rae prior to starting IOP. Pt will follow up with [facility] for individual therapy and pt's next session is 08/22/23. Pt will begin IOP aftercare group tomorrow, 08/15/23 and participate in this for about 8 weeks. Discharge Handout
--- NOTE | 2023-08-14 14:49 | BH.MDN ---
Multi-Disciplinary Note Note 30-min Individual: Time Started:: 09:20 Date: 08/14/23 Purpose of session/treatment goals addressed:: To address current stressors and discuss strategies to help cope with these stressors. Another goal was to discuss discharge and aftercare. Eye Contact:: Good Motor Activity:: Appropriate Appearance:: Neat Speech:: Appropriate Mood:: Euthymic Affect:: Full Thoughts:: Linear, Logical and No evidence of hallucinations/delusions noted Staff Interventions:: discharge planning, strengths perspective, reviewed DSM-5 and other (reflected on progress) Client Response:: Pt responded well to session, open to meeting with therapist. Pt reflected on her growth while in IOP tx and pt shared that she feels like a lot of weight was lifted from her life as pt feels much less guilt, anxiety, and depression. Pt stated that learning to accept and combat negative thinking patterns has helped pt take steps to advocate for herself. Pt has quit a job that pt felt has been toxic to her for a while and pt feels like I'm finally not treading water. Pt reports feeling ready to graduate from [facility], but she is also a little nervous. Pt is looking forward to the aftercare groups to help pt hold herself accountable and reinforce healthy coping skills. Pt was given an aftercare plan with her progress, coping skills, and upcoming appointments. Risks/Concerns:: No SI or thoughts of reported. Progress Toward Goals/Plan:: Pt?s overall symptom reduction is 57% since admission with anger decreasing by 67%, depression decreasing by 50%, suicidal thoughts decreasing by 100%, and anxiety decreasing by 17%. Pt has accomplished her tx goals and no longer meets criteria for [facility] level of care. Pt will discharge from [facility] tx today and follow up with outpatient providers. Time Stopped:: 09:45
--- NOTE | 2023-08-15 10:15 | BH.SGPN.GN ---
Behaviors/Verbalizations/Mental Status: []Client alert and oriented, casually dressed and groomed. Eye contact good. Motor activity appropriate. Speech within normal limits. Affect congruent, mood euthymic. Thoughts linear, logical, no signs of hallucinations or delusions. Client Response/Progress/Benefit: []Pt engaged in session AEB listening attentively to others and providing insight to group discussion. Pt engaged in activity, able to connect how it can be uncomfortable and difficult to accept when things are out of one?s own control. Pt worked with group to identify what things in life can be hard to accept. Group identified things hard to accept as: , body image, loss of relationship, mental health diagnosis, other?s behaviors, and past decisions. Pt worked on identifying what personal things are hard to accept for themself, sharing difficulties with reading and comprehension, needing to take time away from employment, and physical limitations are some things pt struggles with accepting. Pt seemed to benefit from increased awareness of importance of acceptance. Pt to d/c from IOP tx and continue in outpatient counseling to maintain mood stability, promote continued application of skills, and prevent decompensation. Narrative Note: []
== END 2023-08-14 12:24 | disposition home or self-care (01) ==
LOC: BHIOP 07:25
PROVIDERS: PCP Pediatrics; Referring Provider Psychiatry & Neurology Psychiatry; Visit Provider Psychiatry & Neurology Psychiatry
DX: F33.2 Major depressive disorder, recurrent severe without psychotic features (principal); F41.1 Generalized anxiety disorder; F43.10 Post-traumatic stress disorder, unspecified; F50.00 Anorexia nervosa, unspecified; Z79.899 Other long term (current) drug therapy
CPT/HCPCS: S9480; 90832; 90853

== ENCOUNTER 2023-08-15 08:00 | Outpatient (RCR) | payer OTHER, SELFPAY ==
--- NOTE | 2023-08-15 14:00 | BH.COMM ---
Communication Note Communication with Client Communication Note: Patient completed IOP and presents today to start relapse prevention group which meets once weekly (1.5 hours) for 8 weeks. Case discussed with Dr. Khan with plan to admit with dx of F33.2
--- NOTE | 2023-08-15 14:00 | BH.SGPN.GN ---
Behaviors/Verbalizations/Mental Status: []Pt alert and oriented, casually dressed and groomed. Eye contact good. Motor activity appropriate. Speech within normal limits. Affect congruent, mood content. Thoughts linear, logical, no signs of hallucinations or delusions. Client Response/Progress/Benefit: []Pt responded well to session AEB sharing and listening attentively to others. Pt has been consistent with her outpatient mental health appointments and medication compliance. Pt reports using positive self-talk, opposite action, and reaching out to supports to help with managing her mental health symptoms. Pt participated in group discussion defining affirmations and why they are important. Pt provided insight throughout clinician?s presentation of tips for writing personal affirmations and wrote her own affirmations, including ?I am actively working on healing?. Pt appeared to benefit from increased knowledge of affirmation writing skills and creating her own affirmation statements to remind herself of outside tx environment. Will continue aftercare tx to promote consistent mental health maintenance and prevent decompensation. Narrative Note: []
--- NOTE | 2023-08-15 16:43 | BH.MTP ---
[facility] Treatment Plan Patient Information Program Physician:: Dr. Rita Amaya Primary Therapist:: Dia BRADFORD Psychiatric Diagnoses Psychiatric Diagnoses:: Major depressive disorder, recurrent, severe without psychosis F 33.2; Generalized anxiety disorder; PTSD; History of anorexia nervosa Diagnosis Code(s):: F 33.2 Estimated LOS Estimated LOS (in weeks):: 8 Problem/Goal #1 Problem/Goal #1 Stated Goal:: client will maintain or see a reduction in symptoms AEB client score on the DSM 5 cross-cutting measure and improve client's daily functioning. Objectives Objective #1: Stated Objective: Client will continue to consistently apply healthy coping skills to maintain progress made in IOP tx. Interventions: Through group therapy, client will review warning signs and triggers as well as healthy coping skills learned in IOP tx to successfully maintain gains while transitioning into outpatient therapy. Discharge Criteria: Client will have accomplished this goal when client's score on the DSM-5 cross-cutting measure has maintained or reduced over a 8 week period. Target Date: 10/10/23 Review Date: 09/12/23 Status: open Objective #2: Stated Objective: Client will learn and utilize 2-3 maintenance strategies to prevent decompensation from original IOP DSM-5 scores. Interventions: Through group therapy, client will be provided with education on healthy maintenance behaviors, relapse prevention techniques, and healthy coping strategies. Discharge Criteria: Client will have accomplished this goal when can report using at least 2 maintenance skills to prevent decompensation compared to original IOP DSM-5 scores Target Date: 10/10/23 Review Date: 09/12/23 Status: open
== END 2023-08-28 23:59 ==
LOC: BHOG 08:00
PROVIDERS: PCP Pediatrics; Referring Provider Psychiatry & Neurology Psychiatry; Visit Provider Psychiatry & Neurology Psychiatry
DX: F33.2 Major depressive disorder, recurrent severe without psychotic features (principal); F41.1 Generalized anxiety disorder; F43.10 Post-traumatic stress disorder, unspecified; Z86.59 Personal history of other mental and behavioral disorders
CPT/HCPCS: 90853

== ENCOUNTER 2023-08-29 08:04 | Outpatient (RCR) | payer OTHER, SELFPAY ==
--- NOTE | 2023-08-29 14:00 | BH.SGPN.GN ---
Behaviors/Verbalizations/Mental Status: []Pt alert and oriented, neatly dressed and groomed. Eye contact good. Motor activity appropriate. Speech within normal limits. Affect congruent, mood tired and a little dysthymic. Thoughts linear, logical, no signs of hallucinations or delusions. Client Response/Progress/Benefit: [] Pt responded well to session, Pt reports following through with taking medications, seeing a therapist, and seeing psychiatry. Pt reports using numerous coping skills including affirmations, keeping track of her wins, using opposite action, and focusing on ?no zero days.? Pt reports she has been struggling a little this week because her physical health has not been great. Pt engaged well during the discussion of the components of self-compassion. Pt connected with the benefits of self-compassion and participated in the activity of reframing a recent setback using self-compassion. Pt used self-compassion to combat negative self-talk about her physical functioning and pt was able to remind herself that she is worthy of rest. Pt appeared to benefit from practicing self-compassion and connecting with peers. Will continue aftercare to promote mood stability and reinforce healthy coping skills.? Narrative Note: []
--- NOTE | 2023-09-05 13:48 | BH.TPR ---
Treatment Plan Review Demographics Date of Admission:: 08/15/23 Date of Treatment Plan Review:: 09/05/23 Admitting Diagnoses:: Major depressive disorder, recurrent, severe without psychosis F 33.2; Generalized anxiety disorder; PTSD; History of anorexia nervosa Current Diagnoses:: Major depressive disorder, recurrent, severe without psychosis F 33.2; Generalized anxiety disorder; PTSD; History of anorexia nervosa Patient Status Patient's Response to Treatment:: Pt continues to respond well to treatment AEB pt's consistent attendance, ongoing attentiveness and engagement in group discussions, and continued reporting use of skills outside treatment environment. Pt's symptoms are still 62% lower than they were at IOP admission. Status of Current Problems and Symptoms: Pt is reporting continued improvement in her mental health with ability to manage emotions, challenging negative thoughts, and focusing on at least one thing she can do today. Pt reports mild anxious symptoms currently. Pt's biggest stressors are connected to her chronic pain and uncertainty if she can return back to work due to her chronic pain. Progress Problem #1: Problem Name:: Pt will maintain or see a reduction in sx Status of Goals:: Obj 1 - complete with ongoing work encouraged. Pt's DSM 5 scores for depression are 50% lower than they were at IOP admission and anxiety is still 83% lower compared to IOP admission. Obj 2 - complete with ongoing work encouraged. Pt had been reporting using opposite action, focusing on getting at least one task done even on rough days, thought challenge, and positive affirmations. Team Recommendations:: Recommended client continue IOP aftercare group in addition to attending regular outpatient counseling in order to maintain gains. Pt also recommended to continue working on self-compassion and setting realistic goals.
--- NOTE | 2023-09-05 14:00 | BH.SGPN.GN ---
Behaviors/Verbalizations/Mental Status: []Client alert and oriented, casually dressed and groomed. Eye contact good. Motor activity appropriate. Speech within normal limits. Affect congruent, mood dysthymic. Thoughts linear, logical, no signs of hallucinations or delusions. Client Response/Progress/Benefit: []Receptive of session, engaged throughout. Pt reports she has not met with her outpatient counselor this week and schedules psychiatry on an as needed basis. Pt is maintaining medication compliance. Noted use of positive self-talk, non zero days goal , and thought challenging as coping skills aiding in ongoing mental health maintenance. Engaged and attentive during discussion of vulnerability and benefits of practicing vulnerability. Group discussed ways we avoid feeling vulnerable and how this negatively affects mental health and relationships. Pt identified use of avoidance, isolation, perfectionism, and self-sabotage as a means of avoiding potential vulnerability. Appeared to benefit from group support and discussion reflecting on the positive impact vulnerability can have on mental health. Identified plans to challenge herself to reach out more consistently to supports as a way in which she could practice being vulnerable in the next week. Pt will continue with aftercare tx to maintain gains and prevent decompensation. Narrative Note: []Behaviors/Verbalizations/Mental Status: []Client alert and oriented, casually dressed and groomed. Eye contact good. Motor activity appropriate. Speech within normal limits. Affect congruent, mood dysthymic. Thoughts linear, logical, no signs of hallucinations or delusions. Client Response/Progress/Benefit: []Receptive of session, engaged throughout. Pt reports she has not met with her outpatient counselor this week and schedules psychiatry on an as needed basis. Pt is maintaining medication compliance. Noted use of positive self-talk, non zero days goal , and thought challenging as coping skills aiding in ongoing mental health maintenance. Engaged and attentive during discussion of vulnerability and benefits of practicing vulnerability. Group discussed ways we avoid feeling vulnerable and how this negatively affects mental health and relationships. Pt identified use of avoidance, isolation, perfectionism, and self-sabotage as a means of avoiding potential vulnerability. Appeared to benefit from group support and discussion reflecting on the positive impact vulnerability can have on mental health. Identified plans to challenge herself to reach out more consistently to supports as a way in which she could practice being vulnerable in the next week. Pt will continue with aftercare tx to maintain gains and prevent decompensation. Narrative Note: []
--- NOTE | 2023-09-12 14:00 | BH.SGPN.GN ---
Behaviors/Verbalizations/Mental Status: []Client alert and oriented, casually dressed and groomed. Eye contact good. Motor activity appropriate. Speech within normal limits. Affect congruent, mood euthymic and anxious. Thoughts linear, logical, no signs of hallucinations or delusions. Client Response/Progress/Benefit: []Client responded well to session AEB engagement in discussions, listening to others, and completing activity. Client stated she has been going to [facility] and is taking medications consistently. Client shared each month she is faced with the stressor of having to get her medication filled by a certain telephone maintainer due to her allergies. Client stated frustration with this process because she almost ran out of her medication because the pharmacy couldn't get the medication filled. Client reported this stress negatively impacts her body and health, which makes it hard to believe she can go back to work yet. Client identified using self-advocacy, assertive communication, and self-compassion. Client responded well to psychoeducation about self-reflection. In personal reflection client identified progress she has made since d/c from [facility] is working on self-compassion and self-acceptance. Client stated she has also allowed herself to slow down a little so she can make more sound decisions. Client is to continue aftercare to reinforce healthy coping and maintain gains. Narrative Note: []
--- NOTE | 2023-09-19 14:00 | BH.SGPN.GN ---
Behaviors/Verbalizations/Mental Status: []Pt alert and oriented, neatly dressed and groomed. Eye contact good. Motor activity appropriate. Speech within normal limits. Affect congruent, mood euthymic. Thoughts linear, logical, no signs of hallucinations or delusions. Client Response/Progress/Benefit: []Pt receptive of session, engaged throughout. Pt reports she is consistent with medications and she has been seeing her outpatient providers consistently, but she did not have an appointment this week. Pt reports use of self-compassion, setting timers, living by her rule of ?no zero days,? and cleaning this week to cope with stressors. Receptive of discussion on personal accountability and its importance in maintaining mental health stability. Engaged in brainstorming strategies for improving ability to hold themselves accountable and participated in the activity. Pt admitted that the activity elicited frustration and stress, but pt did not give up. Reported wanting to work on being more consistent with her eating by writing down what she eats in a day. Pt feels she is dialogue driven and this will help her. Pt seemed to benefit from support from peers and increasing understanding of personal accountability benefits and strategies. Will continue IOP aftercare group to maintain gains and prevent decompensation. Narrative Note: []
== END 2023-09-26 23:59 ==
LOC: BHOG 08:04
PROVIDERS: PCP Pediatrics; Referring Provider Psychiatry & Neurology Psychiatry; Visit Provider Psychiatry & Neurology Psychiatry
DX: F33.2 Major depressive disorder, recurrent severe without psychotic features (principal); F41.1 Generalized anxiety disorder; F43.10 Post-traumatic stress disorder, unspecified; F50.00 Anorexia nervosa, unspecified
CPT/HCPCS: 90853

== ENCOUNTER 2023-09-27 07:00 | Outpatient (RCR) | payer OTHER, SELFPAY ==
--- NOTE | 2023-10-10 14:00 | BH.SGPN.GN ---
Behaviors/Verbalizations/Mental Status: []Pt alert and oriented, casually dressed and groomed. Eye contact good. Motor activity appropriate. Speech within normal limits. Affect congruent, mood euthymic. Thoughts linear, logical, no signs of hallucinations or delusions. Client Response/Progress/Benefit: [] Pt receptive of session, engaged throughout. Pt shared meeting with outpatient therapist this week and has been consistent with meds. Reports the coping skills used throughout the week included: non-zero days, self-compassion, and thought challenging. Receptive of discussion on the three components of the Wellness [place] (social, mental health, and physical) and the importance of balancing each of these areas. Pt contributed to the discussion on the variables impacting each area of wellness including: biology, environment, attitude, behavior, technology, and social support network. Completed an assessment reviewing personal wellness in each pillar of the wellness triangle. Identified wanting to work on social wellness by creating a consistent schedule for reaching out to supports. Pt seemed to benefit from support from peers and increasing understanding of the relationship between different areas of wellness. Will remain in the aftercare program to maintain gain and prevent decompensation. Narrative Note: []
--- NOTE | 2023-10-17 14:00 | BH.SGPN.GN ---
Behaviors/Verbalizations/Mental Status: []Pt alert and oriented, neatly dressed and groomed. Eye contact good. Motor activity appropriate. Speech within normal limits. Affect congruent, mood dysthymic. Thoughts linear, logical, no signs of hallucinations or delusions. Client Response/Progress/Benefit: [] Pt receptive of session, engaged throughout. Pt had an appointment with her therapist this week and pt has been consistent with taking meds and using coping skills. These skills included: self-reflection, acceptance, and self-compassion. Receptive of discussion on sitting with the uncomfortable and emotional urges. Pt contributed to the discussion of distress tolerance and how building distress tolerance can help improve mood stability and resilience. Pt looked at a recent situation that was distressing and wrote out low distress tolerance and high distress tolerance responses. Pt wants to work on learning to live with her new limits and acceptance. Pt seemed to benefit from support from peers and increasing understanding of distress tolerance. Will discharge from [facility] aftercare as pt has successfully completed the 8-week program and accomplished tx goals. Narrative Note: []
--- NOTE | 2023-10-17 16:49 | BH.DS_ITS ---
Discharge Summary Demographics Date of Admission:: 08/15/23 Discharge Date: 10/17/23 Presenting Problems at Admission:: Pt discharged from IOP tx and transitioned to IOP aftercare to maintain gains pt made in IOP and to reinforce healthy coping skills. At admission to IOP aftercare, pt continued to report symptoms of depression and anxiety, but of reduced intensity. Pt had psychosocial stressors she was coping with including recently quitting her job, family health issues, and managing her chronic pain. Discharge Diagnoses:: Major depressive disorder, recurrent, severe without psychosis F 33.2; Generalized anxiety disorder; PTSD; History of anorexia nervosa Reason for Discharge:: Pt has accomplished tx goals AEB ability to maintain mood stability and gains made in IOP. Pt's DSM-5 scores are 54% less than at to IOP admission. Pt will transition to traditional outpatient counseling. Treatment Progress During Treatment & Response: Pt responded well and made progress in IOP aftercare as evidenced by pt's participation in group discussions and self- report of consistently applying coping skills. Pt's overall DSM-5 scores decreased by 54% from IOP admission. Pt?s depression decreased by 50% since original IOP admission, pt's scores for anxiety decreased by 67%, and anger decreased by 33% compared to original IOP scores. Additionally, at discharge Pt reported feeling more acceptance towards life stressors and a more balanced outlook on life. Pt was also able to give herself more credit and she was consistently practicing self-compassion. Issues Still to be Addressed:: Pt can continue to benefit from working on acceptance, self-compassion, developing more positive core beliefs, setting boundaries, and combating negative thinking patterns. Pt also wants to continue making self-care a priority and figure out what she wants to do with her future. Discharge Recommendations/Instructions:: Pt will continue seeing her outpatient providers to promote gains and maintain mood stability. Pt sees Dr. Rae for medication management and [facility] Ronquillo for individual therapy. Pt saw Princess this week and will be seeing her again in about two weeks. Discharge Handout
== END 2023-10-21 07:10 | disposition home or self-care (01) ==
LOC: BHOG 07:00
PROVIDERS: PCP Pediatrics; Referring Provider Psychiatry & Neurology Psychiatry; Visit Provider Psychiatry & Neurology Psychiatry
DX: F33.2 Major depressive disorder, recurrent severe without psychotic features (principal); F41.1 Generalized anxiety disorder; F43.10 Post-traumatic stress disorder, unspecified; F50.00 Anorexia nervosa, unspecified
CPT/HCPCS: 90853